=== PATIENT | female | born 1930 | race Caucasian/White ===

== ENCOUNTER 2017-05-16 10:48 | Inpatient (IN) | payer MEDICARE, OTHER ==
[2017-05-16] MEDS ORDERED: ACETAMINOPHEN TAB 500 MG TAB PO STA (10:59)
[2017-05-16] MEDS ORDERED: IPRATROPIUM-ALBUTEROL 3 ML NEB INHALATION STA (10:59)
--- NOTE | 2017-05-16 11:02 | ED ---
General Adult HPI - General Chief complaint: Shortness of Breath Stated complaint: SOB Time Seen by Provider: 05/16/17 10:50 Source: patient, EMS, RN notes reviewed Mode of arrival: EMS Limitations: no limitations - History of Present Illness Initial comments: This is an 87-year-old female presents emergency department with past medical history significant for COPD and a recent diagnosis of pneumonia. Patient stopped antibiotics couple days ago but she continues to cough and according to the staff the side. Patient has significant dementia so she is unable to give her further history. Patient denies any pain currently. Patient does not why she is in the emergency department. Patient doesn't complain of any shortness of breath currently. According to the teletypesetter the patient was satting in the high 80s when they saw her gave her one breathing treatment she was satting in the high 90s after that. Patient does have occasional coughing fits per the teletypesetter. No family member or caregiver came with the patient so no further history is available this time. - Related Data Home Medications Medication Instructions Recorded Confirmed Ascorbic Acid [Vitamin C] 500 mg PO DAILY@79901/02/15 05/16/17 Donepezil [Aricept] 10 mg PO HS@199901/02/15 05/16/17 Hydrochlorothiazide [Hydrodiuril] 12.5 mg PO DAILY@79901/02/15 05/16/17 Lisinopril 40 mg PO DAILY@79901/02/15 05/16/17 [place]-3 Fatty Acids/Fish Oil [Fish 1 cap PO DAILY@79901/02/15 05/16/17 Oil 1,000 mg Softgel] Zinc 50 mg PO DAILY@79901/02/15 05/16/17 Levothyroxine Sodium [Synthroid] 137 mcg PO DAILY@79901/13/15 05/16/17 Omeprazole [PriLOSEC] 20 mg PO DAILY@79901/13/15 05/16/17 Multivitamins, Thera [Multivitamin 1 tab PO DAILY@119912/13/15 05/16/17 (formulary)] Acetaminophen Tab [Tylenol] 500 mg PO HS@199905/29/16 05/16/17 Albuterol Nebulized [Ventolin 2.5 mg INHALATION RT-TID 05/29/16 05/16/17 Nebulized] Cholecalciferol [Vitamin D3] 2,000 unit PO DAILY@0800 05/29/16 05/16/17 Melatonin 3 mg PO HS@2000 05/29/16 05/16/17 ALPRAZolam [Xanax] 0.25 mg PO BID@0900,1700 05/16/17 05/16/17 Albuterol Nebulized [Ventolin 2.5 mg INHALATION RT-Q4H PRN 05/16/17 05/16/17 Nebulized] Cyanocobalamin (Vitamin B-12) 1,000 mcg PO DAILY@0800 05/16/17 05/16/17 [Vitamin B-12] Previous Rx's Medication Instructions Recorded Folic Acid 1 mg PO DAILY@1200 #30 tab 11/03/15 Budesonide [Pulmicort] 1 mg INHALATION RT-BID nebu 06/03/16 Allergies Allergy/AdvReac Type Severity Reaction Status Date / Time Beef Containing Products Allergy Nausea & Verified 05/16/17 11:57 [Beef] Vomiting & Diarrhea chocolate flavor Allergy Nausea & Verified 05/16/17 11:57 Vomiting & Diarrhea codeine Allergy Unknown Verified 05/16/17 11:57 isradipine [From [employer]] Allergy Unknown Verified 05/16/17 11:57 metoprolol tartrate Allergy Unknown Verified 05/16/17 11:57 [From Lopressor] tetracycline Allergy Unknown Verified 05/16/17 11:57 Review of Systems ROS Statement: Those systems with pertinent positive or pertinent negative responses have been documented in the HPI. ROS Other: All systems not noted in ROS Statement are negative. Past Medical History Past Medical History: Heart Failure, COPD, Hyperlipidemia, Hypertension, Osteoarthritis (OA), Thyroid Disorder Additional Past Medical History / Comment(s): COPD, hypertension, hyperlipidemia , osteoarthritis, shingles 4 or 5 years ago, scoliosis, hypothyroidism, generalized anxiety disorder, impaired hearing, dementia. History of Any Multi-Drug Resistant Organisms: None Reported Past Surgical History: Hysterectomy Additional Past Surgical History / Comment(s): cataracts Past Anesthesia/Blood Transfusion Reactions: No Reported Reaction Past Psychological History: No Psychological Hx Reported Smoking Status: Former smoker Past Alcohol Use History: Rare Past Drug Use History: None Reported - Past Family History Father Additional Family Medical History / Comment(s): was an alcoholic Mother Family Medical History: Unable to Obtain General Exam - General Exam Comments Initial Comments: GENERAL: Patient is well-developed and well-nourished. Patient is nontoxic and well- hydrated and is in mild distress. ENT: Neck is soft and supple. No significant lymphadenopathy is noted. Oropharynx is clear. Moist mucous membranes. Neck has full range of motion without eliciting any pain. EYES: The sclera were anicteric and conjunctiva were pink and moist. Extraocular movements were intact and pupils were equal round and reactive to light. Eyelids were unremarkable. PULMONARY: Patient has diffuse expiratory wheezing. CARDIOVASCULAR: There is a regular rate and rhythm without any murmurs gallops or rubs. ABDOMEN: Soft and nontender with normal bowel sounds. No palpable organomegaly was noted. There is no palpable pulsatile mass. SKIN: Skin is clear with no lesions or rashes and otherwise unremarkable. NEUROLOGIC: Patient is alert and oriented 2 which we are told is her baseline.. Cranial nerves II through XII are grossly intact. Motor and sensory are also intact. Normal speech, volume and content. Symmetrical smile. MUSCULOSKELETAL: Normal extremities with adequate strength and full range of motion. No lower extremity swelling or edema. No calf tenderness. LYMPHATICS: No significant lymphadenopathy is noted PSYCHIATRIC: Normal psychiatric evaluation. Limitations: no limitations Course Vital Signs 05/16/17 05/16/17 05/16/17 10:50 11:37 11:52 Temperature 99.8 F H Pulse Rate 96 92 90 Respiratory 26 H 26 H Rate Blood Pressure 124/72 O2 Sat by Pulse 91 L Oximetry 05/16/17 11:56 Temperature Pulse Rate 94 Respiratory 20 Rate Blood Pressure 122/56 O2 Sat by Pulse 93 L Oximetry Medical Decision Making - Medical Decision Making EKG shows normal sinus rhythm at 97 bpm OK interval is 154 QRS is 128 QT interval 386 QTC is 490. Patient's EKG shows no ST segment elevation. Patient is right bundle urbano block. Patient's lactic acid is elevated because of dehydration. Chest x-ray shows no acute abnormality. I spoke with Dr. Chris agreed to admit the patient. - Lab Data Result diagrams: 05/16/17 11:10 05/16/17 11:10 Lab Results 05/16/17 05/16/17 05/16/17 Range/Units 11:10 11:10 11:10 WBC 8.3 (3.8-10.6) k/uL RBC 3.49 L (3.80-5.40) m/uL Hgb 12.5 (11.4-16.0) gm/dL Hct 37.6 (34.0-46.0) % MCV 107.7 H (80.0-100.0) fL MCH 35.8 H (25.0-35.0) pg MCHC 33.2 (31.0-37.0) g/dL RDW 15.3 (11.5-15.5) % Plt Count 318 (150-450) k/uL Neutrophils % (Manual) 53.5 % Band Neutrophils % 4.5 % Lymphocytes % (Manual) 19.0 % Monocytes % (Manual) 15.5 % Eosinophils % (Manual) 7.0 % Metamyelocytes % 0.5 % Neutrophils # (Manual) 4.8 (1.3-7.7) k/uL Lymphocytes # (Manual) 1.6 (1.0-4.8) k/uL Monocytes # (Manual) 1.3 H (0-1.0) k/uL Eosinophils # (Manual) 0.6 (0-0.7) k/uL Nucleated RBCs 0 (0-0) /100 WBC Manual Slide Review Performed Macrocytosis Moderate PT (9.0-12.0) sec INR (<1.2) APTT (22.0-30.0) sec Sodium 142 (137-145) mmol/L Potassium 4.1 (3.5-5.1) mmol/L Chloride 104 (98-107) mmol/L Carbon Dioxide 25 (22-30) mmol/L Anion Gap 13 mmol/L BUN 27 H (7-17) mg/dL Creatinine 0.70 (0.52-1.04) mg/dL Est GFR (MDRD) Af Amer >60 (>60 ml/min/1.73 sqM) Est GFR (MDRD) Non-Af >60 (>60 ml/min/1.73 sqM) Glucose 125 H (74-99) mg/dL Plasma Lactic Acid Darnell (0.7-2.0) mmol/L Calcium 9.0 (8.4-10.2) mg/dL Total Bilirubin 0.5 (0.2-1.3) mg/dL AST 31 (14-36) U/L ALT 39 (9-52) U/L Alkaline Phosphatase 60 (38-126) U/L Total Creatine Kinase 44 (30-135) U/L CK-MB (CK-2) 1.7 (0.0-2.4) ng/mL CK-MB (CK-2) Rel Index 3.9 Troponin I <0.012 (0.000-0.034) ng/mL NT-Pro-B Natriuret Pep pg/mL Total Protein 6.5 (6.3-8.2) g/dL Albumin 4.0 (3.5-5.0) g/dL 05/16/17 05/16/17 05/16/17 Range/Units 11:10 11:10 11:10 WBC (3.8-10.6) k/uL RBC (3.80-5.40) m/uL Hgb (11.4-16.0) gm/dL Hct (34.0-46.0) % MCV (80.0-100.0) fL MCH (25.0-35.0) pg MCHC (31.0-37.0) g/dL RDW (11.5-15.5) % Plt Count (150-450) k/uL Neutrophils % (Manual) % Band Neutrophils % % Lymphocytes % (Manual) % Monocytes % (Manual) % Eosinophils % (Manual) % Metamyelocytes % % Neutrophils # (Manual) (1.3-7.7) k/uL Lymphocytes # (Manual) (1.0-4.8) k/uL Monocytes # (Manual) (0-1.0) k/uL Eosinophils # (Manual) (0-0.7) k/uL Nucleated RBCs (0-0) /100 WBC Manual Slide Review Macrocytosis PT 10.3 (9.0-12.0) sec INR 1.0 (<1.2) APTT 22.5 (22.0-30.0) sec Sodium (137-145) mmol/L Potassium (3.5-5.1) mmol/L Chloride (98-107) mmol/L Carbon Dioxide (22-30) mmol/L Anion Gap mmol/L BUN (7-17) mg/dL Creatinine (0.52-1.04) mg/dL Est GFR (MDRD) Af Amer (>60 ml/min/1.73 sqM) Est GFR (MDRD) Non-Af (>60 ml/min/1.73 sqM) Glucose (74-99) mg/dL Plasma Lactic Acid Darnell 2.1 H* (0.7-2.0) mmol/L Calcium (8.4-10.2) mg/dL Total Bilirubin (0.2-1.3) mg/dL AST (14-36) U/L ALT (9-52) U/L Alkaline Phosphatase (38-126) U/L Total Creatine Kinase (30-135) U/L CK-MB (CK-2) (0.0-2.4) ng/mL CK-MB (CK-2) Rel Index Troponin I (0.000-0.034) ng/mL NT-Pro-B Natriuret Pep 86 pg/mL Total Protein (6.3-8.2) g/dL Albumin (3.5-5.0) g/dL Disposition Clinical Impression: COPD with acute exacerbation Disposition: ADMITTED IP TO THIS HOSP Referrals: Vaughn Aanya MD [STAFF PHYSICIAN] - 1-2 days Time of Disposition: 13:10
[2017-05-16 11:26] LABS: Aty Lym Flag Slight; CH 35.1; CHCM 32.8; Immature Gran Flag Slight; Macrocytosis Moderate
[2017-05-16 11:31] LABS: Partial Thromboplastin Time 22.5 sec (22.0-30.0); Prothrombin Time 10.3 sec (9.0-12.0)
--- NOTE | 2017-05-16 11:31 | XR ---
EXAMINATION TYPE: XR chest 2V DATE OF EXAM: 05/16/2017 COMPARISON: Prior chest x-ray 05/30/2016, CT chest 05/29/2016 HISTORY: Fever and cough, COPD TECHNIQUE: Frontal and lateral views of the chest are obtained. FINDINGS: Retrocardiac density with air-fluid level compatible with hiatal hernia is noted. The hear t is enlarged. Patient is rotated and lung volumes are low. There are overlying cardiac leads. Inters titium and central vascularity are prominent. No pneumothorax or pleural effusion evident. IMPRESSION: Correlate for pulmonary venous hypertension and interstitial edema, follow-up suggested. Emphysema. Hiatal hernia.
[2017-05-16 11:36] LABS: ALT 39 U/L (9-52); AST 31 U/L (14-36); Alkaline Phosphatase 60 U/L (38-126); Anion Gap 13 mmol/L; Blood Urea Nitrogen 27 mg/dL (7-17); Carbon Dioxide 25 mmol/L (22-30); Chloride 104 mmol/L (98-107); Glucose 125 mg/dL (74-99); Non-African American GFR(MDRD) >60 (>60 ml/min/1.73 sqM); Potassium 4.1 mmol/L (3.5-5.1); Sodium 142 mmol/L (137-145); Total Bilirubin 0.5 mg/dL (0.2-1.3); Total Protein 6.5 g/dL (6.3-8.2)
[2017-05-16] MEDS ORDERED: SODIUM CHLORIDE 0.9% 500 ML IV STA (11:40)
[2017-05-16 11:43] LABS: HCT 37.6 % (34.0-46.0); HDW 2.69; HGB 12.5 gm/dL (11.4-16.0); MCH 35.8 pg (25.0-35.0); MCHC 33.2 g/dL (31.0-37.0); MCV 107.7 fL (80.0-100.0); Mean Platelet Volume 10.3; RBC 3.49 m/uL (3.80-5.40); RDW 15.3 % (11.5-15.5); WBC 8.3 k/uL (3.8-10.6); WBC (Perox) 8.29
[2017-05-16 11:44] LABS: Creatine Kinase 44 U/L (30-135)
[2017-05-16] MEDS ORDERED: FUROSEMIDE 10 MG/ML 4 ML VIAL IV STA (11:55)
[2017-05-16 11:57] LABS: Creatine Kinase MB 1.7 ng/mL (0.0-2.4); Troponin I <0.012 ng/mL (0.000-0.034)
[2017-05-16 12:17] LABS: Add Differential Manual Differential
[2017-05-16 12:22] LABS: Band Neutrophils % 4.5 %; Manual Review Performed; Metamyelocytes % 0.5 %; Nucleated Red Blood Cells 0 /100 WBC (0-0); Total Cells Counted 200
[2017-05-16 17:25] LABS: Glucose,Whole Blood 146 mg/dL (75-99)
[2017-05-16] MEDS: SODIUM CHLORIDE 0.9% 1,000 ML IV SCH (17:34)
[2017-05-16] MEDS: ALPRAZolam 0.25 MG TAB PO SCH (17:34)
[2017-05-16] MEDS ORDERED: methylPREDNISolone SOD SUCCI 125 MG/2 ML VIAL IV SCH (18:00)
[2017-05-16] MEDS: INSULIN LISPRO (humaLOG) 300 UNIT/3 ML VIAL SQ SCH ×2 (18:38→21:41)
[2017-05-16] MEDS: BUDESONIDE 1 MG/2 ML NEBU INHALATION SCH (19:51)
[2017-05-16 21:23] LABS: Glucose,Whole Blood 156 mg/dL (75-99)
[2017-05-16] MEDS: DONEPEZIL 10 MG TAB PO SCH (21:37)
[2017-05-16] MEDS: MELATONIN 3 MG TABLET PO SCH (21:37)
[2017-05-16] MEDS ORDERED: LORazepam 2 MG/ML SYRINGE IV PRN (22:30)
--- NOTE | 2017-05-16 22:34 | P.HPIM ---
History of Present Illness H&P Date: 05/16/17 Chief Complaint: Short of breath His is a 87-year-old patient followed by visiting physicians. Resident of [facility]. Chronic stable conditions include CHF, hypertension, hyperlipidemia, osteoarthritis, hypothyroid dementia. Does use a walker at her baseline. Patient just completed a course of antibiotic. Patient is a poor historian because of dementia. Brought in because of bouts of coughing short of breath. No sputum production. Patient is started tolerating her meals. Denies any fever. But difficult to get a detailed history. According to the nurse patient gets easily short winded when tries to walk. Patient notably neck smoker Significant past history: CHF, COPD, hypertension, hyperlipidemia, Daphne arthritis, scoliosis, hypothyroid , anxiety, dementia, did dysfunction uses a walker. Review of Systems GEN.: Tired EYES: None HEENT: Decreased hearing NECK: None RESPIRATORY: As above] CARDIOVASCULAR: None GASTROINTESTINAL: None GENITOURINARY: Urinary incontinence MUSCULOSKELETAL: In the joints LYMPHATICS: None HEMATOLOGICAL: None PSYCHIATRY: Forgetful NEUROLOGICAL: Uses a walker Past Medical History Past Medical History: Heart Failure, COPD, Hyperlipidemia, Hypertension, Osteoarthritis (OA), Thyroid Disorder Additional Past Medical History / Comment(s): COPD, hypertension, hyperlipidemia , osteoarthritis, shingles 4 or 5 years ago, scoliosis, hypothyroidism, generalized anxiety disorder, impaired hearing, dementia. History of Any Multi-Drug Resistant Organisms: None Reported Past Surgical History: Hysterectomy Additional Past Surgical History / Comment(s): bilateral cataracts Past Anesthesia/Blood Transfusion Reactions: No Reported Reaction Past Psychological History: No Psychological Hx Reported Additional Psychological History / Comment(s): PT LIVES AT [facility]. USES A WALKER. Smoking Status: Unknown if ever smoked Past Alcohol Use History: Rare Additional Past Alcohol Use History / Comment(s): quit smoking 35 years smoked 1 ppd and she has more than [id number] smoking history. Past Drug Use History: None Reported Additional History: Resident of [facility]. Ex-smoker. 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 Has a daughter. Uses a walker. - Past Family History Father Additional Family Medical History / Comment(s): was an alcoholic Mother Family Medical History: Unable to Obtain Medications and Allergies Home Medications Medication Instructions Recorded Confirmed Type Ascorbic Acid [Vitamin C] 500 mg PO DAILY@0800 01/02/15 05/16/17 History Donepezil [Aricept] 10 mg PO HS@199901/02/15 05/16/17 History Hydrochlorothiazide [Hydrodiuril] 12.5 mg PO DAILY@79901/02/15 05/16/17 History Lisinopril 40 mg PO DAILY@79901/02/15 05/16/17 History [place]-3 Fatty Acids/Fish Oil [Fish 1 cap PO DAILY@79901/02/15 05/16/17 History Oil 1,000 mg Softgel] Zinc 50 mg PO DAILY@79901/02/15 05/16/17 History Levothyroxine Sodium [Synthroid] 137 mcg PO DAILY@79901/13/15 05/16/17 History Omeprazole [PriLOSEC] 20 mg PO DAILY@79901/13/15 05/16/17 History Multivitamins, Thera [Multivitamin 1 tab PO DAILY@1200 12/13/15 05/16/17 History (formulary)] Acetaminophen Tab [Tylenol] 500 mg PO HS@199905/29/16 05/16/17 History Albuterol Nebulized [Ventolin 2.5 mg INHALATION RT-TID 05/29/16 05/16/17 History Nebulized] Cholecalciferol [Vitamin D3] 2,000 unit PO DAILY@79905/29/16 05/16/17 History Melatonin 3 mg PO HS@199905/29/16 05/16/17 History ALPRAZolam [Xanax] 0.25 mg PO BID@0900,1700 05/16/17 05/16/17 History Albuterol Nebulized [Ventolin 2.5 mg INHALATION RT-Q4H PRN 05/16/17 05/16/17 History Nebulized] Cyanocobalamin (Vitamin B-12) 1,000 mcg PO DAILY@79905/16/17 05/16/17 History [Vitamin B-12] Allergies Allergy/AdvReac Type Severity Reaction Status Date / Time Beef Containing Products Allergy Nausea & Verified 05/16/17 11:57 [Beef] Vomiting & Diarrhea chocolate flavor Allergy Nausea & Verified 05/16/17 11:57 Vomiting & Diarrhea codeine Allergy Unknown Verified 05/16/17 11:57 isradipine [From [facility]] Allergy Unknown Verified 05/16/17 11:57 metoprolol tartrate Allergy Unknown Verified 05/16/17 11:57 [From Lopressor] tetracycline Allergy Unknown Verified 05/16/17 11:57 Physical Exam Vitals: Vital Signs Temp Pulse Pulse Resp BP BP Pulse Ox 05/16/17 16:14 98.0 F 70 16 106/64 96 05/16/17 14:51 97.9 F 79 18 134/74 97 05/16/17 11:56 94 20 122/56 93 L 05/16/17 11:52 90 05/16/17 11:37 92 26 H 05/16/17 10:50 99.8 F H 96 26 H 124/72 91 L Intake and Output Patient Weight 05/17/17 06:59 Weight 56.699 kg VITAL SIGNS: That 99.8, 96, 26, 124/72, 91% 2 L upon presentation GENERAL: Average built, laying in bed comfortable anxious appearing. EYES: Pupils equal. Conjunctiva normal. HEENT: External appearance of nose and ears normal, oral cavity grossly normal, decreased hearing. NECK: JVD not raised; masses not palpable. HEART: First and second heart sounds are normal; no edema. LUNGS: Respiratory rate increased, decreased but some mild wheezing. ABDOMEN: Soft, nontender, liver spleen not palpable, no masses palpable. LYMPHATICS: No lymph nodes palpable in the axilla and neck. PSYCH: Patient is awake answering questions with limited in her history giving she is not sure why she is here but she can touch his the hospitall. NEUROLOGICAL: Cranial nerves grossly intact; no facial asymmetry, power and sensation grossly intact MUSCULAR skeletal: Evidence of osteoarthritis multiple joints. Results CBC & Chem 7: 05/16/17 11:10 05/16/17 11:10 Labs: White count 8.3, hemoglobin 12.5, platelets normal, potassium 4.1, (27, creatinine 0.7, EKG right bundle branch block Chest x-ray reviewed-scattered infiltrates Pro-BNP 86 troponin less than 0.012 Assessment and Plan Plan: Assessment: Acute COPD exacerbation in an ex-smoker was just finished a course of antibiotics Possible acute pneumonitis given the chest x-ray findings though patient is afebrile, normal white count as good bouts of coughing -Chronic congestive heart failure EF not known Essential hypertension Hyperlipidemia Primary osteoarthritis in multiple joints Chronic scoliosis Chronic hypothyroidism chronic anxiety not otherwise specified Alzheimer's dementia late onset type Gait dysfunction uses a walker Plan: Patient to be started on bronchodilators. IV steroids. Ambulate as tolerated.. Home medications will be resumed. Given her age, prognosis guarded.
[2017-05-16] MEDS: IPRATROPIUM-ALBUTEROL 3 ML NEB INHALATION PRN (23:25)
[2017-05-17] MEDS ORDERED: HALOPERIDOL LACTATE 5 MG/ML 1 ML VIAL IVP PRN (00:44)
[2017-05-17] MEDS: HALOPERIDOL LACTATE 5 MG/ML 1 ML VIAL IM PRN (01:32)
[2017-05-17] MEDS: methylPREDNISolone SOD SUCCI 40 MG/ML 1 ML VIAL IV SCH ×4 (05:48→23:46)
[2017-05-17 07:37] LABS: Hemoglobin A1C 6.6 % (4.2-6.1)
[2017-05-17 08:03] LABS: Glucose,Whole Blood 126 mg/dL (75-99)
[2017-05-17] MEDS: INSULIN LISPRO (humaLOG) 300 UNIT/3 ML VIAL SQ SCH ×4 (09:32→22:19)
[2017-05-17] MEDS: BUDESONIDE 1 MG/2 ML NEBU INHALATION SCH ×2 (09:41→20:05)
[2017-05-17] MEDS: IPRATROPIUM-ALBUTEROL 3 ML NEB INHALATION SCH ×4 (09:41→20:05)
[2017-05-17] MEDS: LISINOPRIL 20 MG TAB PO SCH (09:58)
[2017-05-17] MEDS: CYANOCOBALAMIN 500 MCG TAB PO SCH (09:58)
[2017-05-17] MEDS: CHOLECALCIFEROL 1,000 UNIT TAB PO SCH (09:58)
[2017-05-17] MEDS: LEVOTHYROXINE 137 MCG TAB PO SCH (09:59)
[2017-05-17] MEDS: HYDROCHLOROTHIAZIDE 12.5 MG CAP PO SCH (10:00)
[2017-05-17] MEDS: PANTOPRAZOLE 40 MG TABLET PO SCH (10:06)
[2017-05-17 12:10] LABS: Glucose,Whole Blood 163 mg/dL (75-99)
[2017-05-17] MEDS: ENOXAPARIN 40 MG/0.4 ML SYRINGE SQ SCH (13:15)
[2017-05-17] MEDS: FOLIC ACID 1 MG TAB PO SCH (13:17)
[2017-05-17] MEDS: MULTIVITAMINS, THERA 1 EACH TAB PO SCH (13:17)
[2017-05-17] MEDS: SODIUM CHLORIDE 0.9% 1,000 ML IV SCH (13:23)
[2017-05-17] MEDS: ALPRAZolam 0.25 MG TAB PO SCH ×2 (15:53→17:13)
[2017-05-17 17:41] LABS: Glucose,Whole Blood 108 mg/dL (75-99)
[2017-05-17] MEDS: guaiFENesin SYRUP 100MG/5ML 200 MG/10 ML CUP PO PRN (19:02)
--- NOTE | 2017-05-17 19:37 | P.PN ---
<Eva Mclaughlin - Last Filed: 05/17/17 19:27> Progress Note - Text DATE OF SERVICE: 05/17/2017 PRESENTING COMPLAINT: Shortness of breath INTERVAL HISTORY: 87-year-old patient followed by visiting physicians, resident of [facility]. Recently completed a course of antibiotics for pneumonia brought in because of bouts of coughing and shortness of breath. Difficult to obtain history information as patient is has dementia 05/17/2017: Patient just walking back from the bathroom very short of breath, is difficult to direct her times. She admits she gets tired easily. REVIEW OF SYSTEMS: Difficult to perform due to patient's dementia CURRENT MEDICATIONS DuoNeb's, Pulmicort, Xanax, Aricept, Lovenox, Synthroid, Ativan, melatonin. PHYSICAL EXAM VITAL SIGNS: 97.8, pulse 91, respiratory rate 22, blood pressure 118/53, oxygen saturation 98 % on 2 L. GENERAL APPEARANCE: Sitting up at the bedside, in mild distress. EYES: Pupils equal. Conjunctiva normal. NECK: JVD not raised. Mass not palpable. RESPIRATORY: Respiratory effort labored with exertion, conversational dyspnea noted. Decreased breath sounds bilaterally, positive cough no sputum. CARDIOVASCULAR: First and second sounds normal. No edema. ABDOMEN: Soft. Liver and spleen not palpable. No tenderness. No mass palpable. PSYCHIATRY: Alert and oriented x3. Mood and affect normal. INVESTIGATIONS: Accu-Cheks noted ASSESSMENT: -Acute COPD exacerbation and an ex-smoker who just finished a course of antibiotics. -Possible acute pneumonitis given the chest x-ray although patient is afebrile, normal white count, positive cough -Chronic congestive heart failure EF not known. -Essential hypertension. -Hyperlipidemia -Primary osteoarthritis of multiple joints. -Chronic scoliosis. -Chronic hypothyroidism. -Chronic anxiety not otherwise specified. -Alzheimer's dementia late onset type. -Gait dysfunction uses a walker PLAN: Continue bronchodilators, IV steroids, ambulate as tolerated. FRUIT TRIMMER statement: Patient was seen and examined by nurse practitioner Eva Mclaughlin and all elements of the case discussed with attending Dr. Urrutia <Amadou Urrutia - Last Filed: 05/17/17 23:25> Progress Note - Text Attending note. Date of service-05/17/2017 This patient was seen and examined by me . I reviewed the note of my nurse practitioner, Ms. Mclaughlin. Discussed with her, additional findings as below. Admitted with COPD exacerbation and probably pneumonitis. Feels a bit better. Has bouts of wheezing cough present. Eating her breakfast. On examination: Decreased breath sounds, and expiratory wheezing. I'll see questions Investigations: Accu-Cheks noted Assessment and plan: Acute COPD exacerbation ex-smoker, slow to respond Acute pneumonitis likely viral Care was discussed with the patient continue current medication treatment plan. Pulmonary was consulted
[2017-05-17 21:41] LABS: Glucose,Whole Blood 130 mg/dL (75-99)
[2017-05-17] MEDS: DONEPEZIL 10 MG TAB PO SCH (22:19)
[2017-05-17] MEDS: MELATONIN 3 MG TABLET PO SCH (22:19)
[2017-05-18 06:54] LABS: Glucose,Whole Blood 126 mg/dL (75-99)
[2017-05-18] MEDS: BUDESONIDE 1 MG/2 ML NEBU INHALATION SCH ×2 (07:39→20:13)
[2017-05-18] MEDS: IPRATROPIUM-ALBUTEROL 3 ML NEB INHALATION SCH ×4 (07:39→20:13)
[2017-05-18] MEDS: INSULIN LISPRO (humaLOG) 300 UNIT/3 ML VIAL SQ SCH ×3 (08:26→18:21)
[2017-05-18] MEDS: HYDROCHLOROTHIAZIDE 12.5 MG CAP PO SCH (08:31)
[2017-05-18] MEDS: ALPRAZolam 0.25 MG TAB PO SCH ×2 (08:31→18:21)
[2017-05-18] MEDS: CHOLECALCIFEROL 1,000 UNIT TAB PO SCH (08:32)
[2017-05-18] MEDS: LEVOTHYROXINE 137 MCG TAB PO SCH (08:32)
[2017-05-18] MEDS: LISINOPRIL 20 MG TAB PO SCH (08:32)
[2017-05-18] MEDS: methylPREDNISolone SOD SUCCI 40 MG/ML 1 ML VIAL IV SCH (08:33)
[2017-05-18] MEDS: ENOXAPARIN 40 MG/0.4 ML SYRINGE SQ SCH (08:33)
[2017-05-18] MEDS: CYANOCOBALAMIN 500 MCG TAB PO SCH (08:33)
[2017-05-18] MEDS: PANTOPRAZOLE 40 MG TABLET PO SCH (08:33)
[2017-05-18] MEDS: SODIUM CHLORIDE 0.9% 1,000 ML IV SCH (08:34)
[2017-05-18 08:52] LABS: Basophils # (A) 0.1 k/uL (0-0.2); Basophils % (A) 1 %; CH 34.6; CHCM 31.9; Eosinophils % (A) 0 %; HCT 37.3 % (34.0-46.0); HDW 2.57; Hypochromasia Slight; Luc # (Auto) 0.15; Luc % (Auto) 2; Lymphocytes # (A) 1.1 k/uL (1.0-4.8); Lymphocytes % (A) 15 %; MCH 35.1 pg (25.0-35.0); MCHC 32.2 g/dL (31.0-37.0); Macrocytosis Marked; Mean Platelet Volume 9.3; Monocytes # (A) 0.3 k/uL (0-1.0); Monocytes % (A) 4 %; Neutrophils # (A) 5.7 k/uL (1.3-7.7); Neutrophils % (A) 78 %; RBC 3.42 m/uL (3.80-5.40); RDW 14.9 % (11.5-15.5); WBC 7.3 k/uL (3.8-10.6); WBC (Perox) 7.69
[2017-05-18 08:53] LABS: Anion Gap 9 mmol/L; Blood Urea Nitrogen 32 mg/dL (7-17); Calcium 9.2 mg/dL (8.4-10.2); Carbon Dioxide 31 mmol/L (22-30); Chloride 102 mmol/L (98-107); Glucose 112 mg/dL (74-99); Non-African American GFR(MDRD) >60 (>60 ml/min/1.73 sqM); Potassium 5.1 mmol/L (3.5-5.1); Sodium 142 mmol/L (137-145)
[2017-05-18 11:03] LABS: Manual Review Performed
[2017-05-18 11:50] LABS: Glucose,Whole Blood 110 mg/dL (75-99)
[2017-05-18] MEDS: methylPREDNISolone SOD SUCCI 125 MG/2 ML VIAL IV SCH ×2 (12:03→18:22)
[2017-05-18] MEDS: MULTIVITAMINS, THERA 1 EACH TAB PO SCH (13:03)
[2017-05-18] MEDS: FOLIC ACID 1 MG TAB PO SCH (13:04)
--- NOTE | 2017-05-18 13:47 | CONS ---
The patient is an 87-year-old female presents with diagnosis of COPD exacerbation. The patient is very confused and disoriented. Lots of audible wheezing and cough. The patient was seen in the emergency room. The patient was apparently brought in by EMS. Came in with complaints of cough, shortness of breath and wheezing. The patient initially was seen by EMS, paramedics and the patient saturations were quite low. Subsequent to a breathing treatment, ( ) saturations improved. She has audible wheezing currently. Very confused. Very hard of hearing. Her medications include: 1. Ascorbic acid. 2. Aricept. 3. Hydrochlorothiazide. 4. Lisinopril. 5. [place]-3. 6. Fish oils. 7. Zinc. 8. Levothyroxine. 9. Omeprazole. 10. Multivitamins. 11. Tylenol. 12. Albuterol updrafts. 13. Vitamin D3. 14. Melatonin. 15. Xanax. 16. Ventolin inhaler. 17. Vitamin B12. 18. Also at one point was on Folic acid and Pulmicort updrafts. ALLERGIES INCLUDE BEEF CONTAINING PRODUCTS, CHOCOLATE, ( ) CODEINE, DYNACIRC, METOPROLOL, TETRACYCLINE. Past medical history includes CHF, COPD, Hyperlipidemia, hypertension, DJD, hypothyroidism, osteoarthritis, shingles, scoliosis, generalized anxiety and impaired hearing and dementia. Surgical history includes among other things, hysterectomy and cataract surgery. FAMILY HISTORY: Significant for father who is an alcoholic. SOCIAL HISTORY: Positive for previous tobacco use. The patient does not smoke currently. Rare alcohol use. No illicit drug use. Review of systems is unreliable. Currently temperature 98.8, Heart rate is 72. Respiratory rate is 14. Blood pressure 111/74. Mean 86. 2 L saturation 99%. Appears in no acute distress. HEENT: Examination is grossly unremarkable. Mucous membranes are moist. No oral lesions. Neck supple. Full range of motion. No adenopathy. No thyromegaly. Neck veins are flat. Cardiovascular: Examination revealed regular rate and rhythm. S1, S2 normal. Lungs reveal some inspiratory and expiratory wheezes and rhonchi. Breath sounds are diminished. There is prolongation. Abdomen soft. Bowel sounds are heard. Extremities are intact. No cyanosis, clubbing or edema. Skin without rash. Neurological examination could not be adequately performed. Labs are reviewed. White count 7.3, hemoglobin and hematocrit 12 and 37.3. Platelet count 374,000. Sodium and potassium 142 and 5.1. Chloride 102. CO2 31. BUN and creatinine 32 and 0.74. Blood cultures all negative. Lactic acid was initially 2.3. Calcium normal. Troponins negative. BNP was negative. The patient had a chest x-ray done on 05/16 which showed some mild interstitial edema, mild congestive heart failure. There is some emphysematous changes as well. ASSESSMENT: 1. Shortness of breath, likely multifactorial in part related to underlying chronic obstructive pulmonary disease exacerbation but also some mild fluid overload. 2. History of congestive heart failure. 3. History of chronic obstructive pulmonary disease. 4. History of hyperlipidemia. 5. Hypertension. 6. Degenerative joint disease. 7. Hypothyroidism. 8. History of cataracts. 9. History of generalized anxiety. 10. Dementia by history. 11. Hard of hearing. The patients medications are reviewed. Please see my orders. We will make sure he is on appropriate medications including DuoNeb, Pulmicort, Formoterol and systemic cortical steroids as well as oral antibiotic. Additional recommendations and suggestions forthcoming. Prognosis guarded. MTDD
[2017-05-18 17:16] LABS: Glucose,Whole Blood 135 mg/dL (75-99)
--- NOTE | 2017-05-18 19:23 | P.PN ---
Progress Note - Text DATE OF SERVICE: 05/18/2017 PRESENTING COMPLAINT: Shortness of breath INTERVAL HISTORY: 87-year-old patient followed by visiting physicians, resident of [facility]. Recently completed a course of antibiotics for pneumonia brought in because of bouts of coughing and shortness of breath. Difficult to obtain history information as patient has dementia 05/17/2017: Patient just walking back from the bathroom very short of breath, is difficult to direct her times. She admits she gets tired easily. 05/18/2017: Patient lying in the bed, sleeping quietly vital signs stable, audible wheezing heard, coarse cough, no sputum production, eating about 50% of her meals, overnight patient becomes fairly agitated and needs a sitter at the bedside, as she is a fall risk and has a tendency to be impulsive. Oral antibiotics and corticosteroids added to patient's medication regimen REVIEW OF SYSTEMS: Difficult to perform due to patient's dementia CURRENT MEDICATIONS DuoNeb's, Pulmicort, Xanax, Aricept, Lovenox, Synthroid, Ativan, melatonin. Solu-Medrol 60 mg IV every 6 hours, trimethoprim/sulfamethizole IV piggyback twice a day PHYSICAL EXAM VITAL SIGNS: 97.8, pulse 91, respiratory rate 22, blood pressure 118/53, oxygen saturation 98 % on 2 L. GENERAL APPEARANCE: Sitting up at the bedside, in mild distress. EYES: Pupils equal. Conjunctiva normal. NECK: JVD not raised. Mass not palpable. RESPIRATORY: Respiratory effort labored with exertion, conversational dyspnea noted. Decreased breath sounds bilaterally, positive cough no sputum. CARDIOVASCULAR: First and second sounds normal. No edema. ABDOMEN: Soft. Liver and spleen not palpable. No tenderness. No mass palpable. PSYCHIATRY: Alert and oriented x1-2. Mood and affect normal. INVESTIGATIONS: White blood cell count 7.3, hemoglobin 12.0, sodium 142, potassium 5.1, BUN 32, creatinine 0.74. Accu-Cheks noted ASSESSMENT: -Acute COPD exacerbation in an ex-smoker who just finished a course of antibiotics, slow to respond - acute pneumonitis likely viral slow to respond -Chronic congestive heart failure EF not known. -Essential hypertension. -Hyperlipidemia -Primary osteoarthritis of multiple joints. -Chronic scoliosis. -Chronic hypothyroidism. -Chronic anxiety not otherwise specified. -Alzheimer's dementia late onset type. -Gait dysfunction uses a walker PLAN: Continue bronchodilators, IV steroids and antibiotics breathing treatments. Defer discussion of plan of care with patient until family is present at the bedside. We will continue to follow closely. . CAR SEAT UPHOLSTERER statement: Patient was seen and examined by nurse practitioner Eva Mclaughlin and all elements of the case discussed with attending Dr. Urrutia
[2017-05-18] MEDS: FORMOTEROL FUMARATE 20 MCG/2 ML NEBU INHALATION SCH (20:13)
[2017-05-18 21:00] LABS: Glucose,Whole Blood 156 mg/dL (75-99)
[2017-05-18] MEDS ORDERED: SULFAMETHOX-TMP 800-160MG 1 EACH TAB PO SCH (21:00)
[2017-05-18] MEDS: HALOPERIDOL LACTATE 5 MG/ML 1 ML VIAL IM PRN (21:04)
[2017-05-18] MEDS: DONEPEZIL 10 MG TAB PO SCH (22:54)
[2017-05-18] MEDS: MELATONIN 3 MG TABLET PO SCH (22:54)
[2017-05-18] MEDS ORDERED: HALOPERIDOL LACTATE 5 MG/ML 1 ML VIAL IM PRN (23:47)
[2017-05-19] MEDS: INSULIN LISPRO (humaLOG) 300 UNIT/3 ML VIAL SQ SCH ×5 (02:15→22:07)
[2017-05-19] MEDS: methylPREDNISolone SOD SUCCI 125 MG/2 ML VIAL IV SCH ×3 (02:16→12:29)
[2017-05-19] MEDS: SODIUM CHLORIDE 0.9% 1,000 ML IV SCH (05:24)
[2017-05-19 06:56] LABS: Glucose,Whole Blood 95 mg/dL (75-99)
[2017-05-19] MEDS: IPRATROPIUM-ALBUTEROL 3 ML NEB INHALATION SCH ×4 (07:44→20:39)
[2017-05-19] MEDS: BUDESONIDE 1 MG/2 ML NEBU INHALATION SCH ×2 (07:44→20:39)
[2017-05-19] MEDS: FORMOTEROL FUMARATE 20 MCG/2 ML NEBU INHALATION SCH ×2 (07:44→20:38)
[2017-05-19] MEDS: LISINOPRIL 20 MG TAB PO SCH (08:12)
[2017-05-19] MEDS: CYANOCOBALAMIN 500 MCG TAB PO SCH (08:12)
[2017-05-19] MEDS: LEVOTHYROXINE 137 MCG TAB PO SCH (08:12)
[2017-05-19] MEDS: PANTOPRAZOLE 40 MG TABLET PO SCH (08:12)
[2017-05-19] MEDS: HYDROCHLOROTHIAZIDE 12.5 MG CAP PO SCH (08:13)
[2017-05-19] MEDS: CHOLECALCIFEROL 1,000 UNIT TAB PO SCH (08:13)
[2017-05-19] MEDS: ENOXAPARIN 40 MG/0.4 ML SYRINGE SQ SCH (08:14)
[2017-05-19] MEDS: ALPRAZolam 0.25 MG TAB PO SCH ×2 (08:16→17:52)
[2017-05-19] MEDS ORDERED: SULFAMETHOX-TMP 800-160MG 1 EACH TAB PO SCH (09:00)
[2017-05-19 10:18] LABS: Anion Gap 12 mmol/L; Blood Urea Nitrogen 37 mg/dL (7-17); Carbon Dioxide 27 mmol/L (22-30); Chloride 102 mmol/L (98-107); Glucose 102 mg/dL (74-99); Non-African American GFR(MDRD) >60 (>60 ml/min/1.73 sqM); Potassium 4.3 mmol/L (3.5-5.1); Sodium 141 mmol/L (137-145)
[2017-05-19 10:22] LABS: CH 35.2; CHCM 32.5; HCT 41.9 % (34.0-46.0); HDW 2.57; HGB 13.4 gm/dL (11.4-16.0); MCH 34.9 pg (25.0-35.0); Macrocytosis Marked; Mean Platelet Volume 10.3; RBC 3.84 m/uL (3.80-5.40); RDW 15.5 % (11.5-15.5)
--- NOTE | 2017-05-19 10:23 | XR ---
EXAMINATION TYPE: XR chest 2V DATE OF EXAM: 05/19/2017 COMPARISON: 05/16/2017 HISTORY: Cough and pneumonia TECHNIQUE: Frontal and lateral views of the chest are obtained. FINDINGS: Diffuse interstitial prominence and peribronchial cuffing are appreciated, similar in degr ee to the prior exam with no focal consolidation. Low lung volumes accentuate the pulmonary vasculatu re. The cardiac silhouette size is within normal limits given the degree of inspiration. The osseo us structures are intact. The known hiatal hernia is better appreciated on the prior examination. IMPRESSION: Prominence of the interstitium and peribronchial cuffing. Primary consideration is for a typical pneumonia, bronchitis, or inflammatory etiology. Pulmonary vascularity is accentuated by low lung volumes.
[2017-05-19 10:51] LABS: Add Differential Manual Differential
[2017-05-19 10:52] LABS: Nucleated Red Blood Cells 0 /100 WBC (0-0); Total Cells Counted 100
[2017-05-19 10:54] LABS: Large Platelets Present; Polychromasia Present
--- NOTE | 2017-05-19 11:44 | CONS ---
DATE OF SERVICE: 05/18/2017 Reason for consultation is a positive blood culture. HISTORY OF PRESENT ILLNESS: The patient is an 87-year-old female who has been brought into the ER at [facility] on 05/16/2017 with the chief complaints of increasing cough and shortness of breath. Apparently the patient does have a history of underlying COPD and recently completed a course of pneumonia. Antibiotics were stopped a few days ago; however, the patient continues to cough per the [facility] where the patient resides. On arrival by the EMS, the patient also noticed to have the oxygen in high 80s. The patient did receive one breathing treatment and oxygen to the 90s. The patient was noticed to have occasional coughing fits per the plywood scarfer tender. Subsequently brought into the ER at [facility]. Patient was evaluated by the ER physician. X-ray did not show an acute pneumonia. She has a normal white count. Fever was 99.8. Patient did have blood culture drawn. One of them is showing a gram-positive bacilli. A repeat was obtained which is also showing gram positive bacilli, hence I will give her consideration for further recommendation regarding antibiotic therapy. All of this information has been obtained from review of the chart and talking with the staff as the patient is not a very good historian and unable to provide a reliable history. REVIEW OF SYSTEMS: Could not be reliably obtained with the positive points have been shown in the HPI. PAST MEDICAL HISTORY: Significant for CHF, COPD, hypertensin, hyperlipidemia, osteoarthritis, scoliosis, hypothyroidism, anxiety, dementia. PAST SURGICAL HISTORY: Hysterectomy, bilateral cataract surgery. SOCIAL HISTORY: The patient is at the [facility]. Did quit smoking about 4 or 5 years ago with about 50-pack year smoking. No drinking or drug use. FAMILY HISTORY: Father was alcoholic. Allergies to BEEF CONTAINING PRODUCTS, METOPROLOL, TETRACYCLINE and CODEINE. On examination, here blood pressure is 141/74 with a pulse of 84, temperature of 98.1. She is 98% on 2 L nasal cannula. General description is an elderly female lying in bed in no distress. No tachypnea or accessory muscle for respiration use. HEENT exam shows no pallor or scleral icterus. Oral mucosal membrane dry. NECK: Trachea central, no thyromegaly. LUNGS: Unlabored breathing with decreased breath sounds at the base, no wheeze. HEART: S1, S2, regular rate and rhythm. ABDOMEN: Soft, no tenderness. EXTREMITIES: No edema of the feet. SKIN EXAMINATION: No rash or mass palpable. NEUROLOGICAL: The patient is awake, alert, orientation ( ). No agitation was noticed though. LABS: Hemoglobin is 12, the white count is 7.3, BUN of 32, creatinine 0.74. Blood cultures 05/16 positive for a gram-positive bacilli. Blood cultures 05/17 is positive for gram-positive bacilli. Chest x-ray report with no acute pneumonia. DIAGNOSTIC IMPRESSION AND PLAN: Patient with a positive blood culture with gram -positive bacilli, more likely a skin contamination as patient has no clinical disease to go along with it, admitted to the hospital with increased shortness of breath and a cough and low O2 sensor; however, the x-ray was negative for any acute pneumonia. PLAN: 1. Blood culture will be repeated in the morning again. 2. Will also obtain a chest x-ray in PA and lateral. 3. No need for any vancomycin therapy at this point. 4. Will follow up on the clinical condition and culture to further adjust medication if needed. Thank you for this consultation, will follow this patient along with you. REBECCA
[2017-05-19 12:03] LABS: Glucose,Whole Blood 80 mg/dL (75-99)
[2017-05-19] MEDS: MULTIVITAMINS, THERA 1 EACH TAB PO SCH (12:27)
[2017-05-19] MEDS: FOLIC ACID 1 MG TAB PO SCH (12:28)
--- NOTE | 2017-05-19 14:28 | PN ---
This is an 87-year-old patient seen in consultation for COPD exacerbation. The patient is very confused, disoriented, refusing some of her medications. Ripping her IV out. We will switch her to oral Prednisone and cut back on her breathing treatments which she is refusing. It is really hard getting any history from her at all. Her medical history is apparently positive for CHF, COPD, hyperlipidemia, hypertension, DJD, hypothyroidism, shingles, scoliosis, generalized anxiety and impaired hearing with dementia. Current vital signs are reviewed. Temperature is 97.1. Heart rate 80. Respiratory rate 16. Blood pressure 122/67. Mean 85. Room air saturation 92 %, 2 L saturation 96%. Appears in no acute distress. HEENT examination is grossly unremarkable. Mucous membranes are moist. Neck is supple. Full range of motion. No adenopathy, thyromegaly. No neck vein distention. Cardiovascular examination reveals a regular rhythm and rate. S1, S2 normal. Lungs reveal bibasilar rhonchi. Breath sounds are diminished. Slight wheezing. Abdomen soft, bowel sounds are heard. Extremities are intact. No cyanosis, clubbing or edema. Skin without rash. Labs are reviewed. White count 12, hemoglobin 13.4, hematocrit 41.9, platelet count 360,000. Sodium, potassium, chloride and CO2 all normal. BUN and creatinine 37 and 0.66. Microbiology is showing blood culture positive for ( ) may be a contaminant. Chest x-ray consistent for COPD and possible acute bronchitis. Medications are reviewed. ASSESSMENT: 1. Chronic obstructive pulmonary disease exacerbation complicated by purulent tracheobronchitis. 2. Mild fluid overload. 3. Congestive heart failure. 4. History of chronic obstructive pulmonary disease. 5. Hypoxemic respiratory failure. 6. History of hyperlipidemia. 7. Hypertension. 8. Degenerative joint disease. 9. Hypothyroidism. 10. History of cataracts. 11. History of generalized anxiety. 12. History of dementia. 13. History of being hard of hearing. PLAN: Medications are reviewed. I will make sure we consolidate her medications. She can refuse the medications if she wants. She apparently is refusing some. Sometimes she pulls off her oxygen. Saturations sometimes go about 90% may be a bit lower. No additional recommendations are made. Prognosis guarded. MTDD
[2017-05-19 17:25] LABS: Glucose,Whole Blood 87 mg/dL (75-99)
[2017-05-19] MEDS ORDERED: FUROSEMIDE 10 MG/ML 2 ML VIAL IV ONE (20:50)
--- NOTE | 2017-05-19 21:13 | PN ---
DATE OF SERVICE: 05/19/17 REASON FOR FOLLOW UP: 1. Positive blood culture. 2. Possible bronchitis/pneumonia. INTERVAL HISTORY: The patient is afebrile. She is more awake and alert today. Breathing comfortably. She did have some cough, not bringing up any sputum. No chest pain. No abdominal pain and no diarrhea has been noticed. On examination, blood pressure 111/68, pulse 99, temperature 97.4, he is 94% on 2 L nasal cannula. General description is an elderly female lying in the bed in no distress. Respiratory system: Unlabored breathing with occasional wheeze. Heart: S1 , S2 regular rate and rhythm. Abdomen soft, no tenderness. LABS: Hemoglobin 13.4, white count 12. BUN 37, creatinine 0.66. Blood culture with ( ). DIAGNOSTIC IMPRESSION AND PLAN: 1. Patient with positive blood cultures with ( ) which is likely a skin contamination in a patient with no clinical symptoms to go along with it. 2. Patient with possible bronchitis/atypical pneumonia. Antibiotic has been adjusted to azithromycin that will be continued in addition to the ( ) per pulmonary. Continue supportive care. MTDD
[2017-05-19] MEDS: DONEPEZIL 10 MG TAB PO SCH (21:35)
[2017-05-19] MEDS: MELATONIN 3 MG TABLET PO SCH (21:35)
[2017-05-19 22:04] LABS: Glucose,Whole Blood 92 mg/dL (75-99)
[2017-05-19] MEDS: guaiFENesin 600 MG TABLET.ER PO SCH (22:07)
[2017-05-19] MEDS: IPRATROPIUM 0.5 MG/2.5 ML NEBU INHALATION SCH (23:33)
[2017-05-19] MEDS: ALBUTEROL NEB (CONC) 2.5 MG/0.5 ML INHALATION SCH (23:33)
[2017-05-20] MEDS: ALBUTEROL NEB (CONC) 2.5 MG/0.5 ML INHALATION SCH ×8 (04:58→20:46)
[2017-05-20] MEDS: IPRATROPIUM 0.5 MG/2.5 ML NEBU INHALATION SCH ×7 (04:58→20:45)
[2017-05-20] MEDS: IPRATROPIUM-ALBUTEROL 3 ML NEB INHALATION PRN (05:47)
[2017-05-20 05:48] LABS: Glucose,Whole Blood 95 mg/dL (75-99)
[2017-05-20] MEDS ORDERED: FUROSEMIDE 40 MG TAB PO ONE (06:00)
[2017-05-20] MEDS: BUDESONIDE 1 MG/2 ML NEBU INHALATION SCH ×3 (07:36→20:47)
[2017-05-20] MEDS: FORMOTEROL FUMARATE 20 MCG/2 ML NEBU INHALATION SCH ×3 (07:38→20:47)
[2017-05-20 07:55] LABS: Glucose,Whole Blood 90 mg/dL (75-99)
[2017-05-20 08:16] LABS: Basophils # (A) 0.1 k/uL (0-0.2); Basophils % (A) 1 %; CH 34.9; CHCM 32.1; Eosinophils # (A) 0.3 k/uL (0-0.7); Eosinophils % (A) 3 %; HCT 41.5 % (34.0-46.0); HDW 2.54; HGB 13.7 gm/dL (11.4-16.0); Luc # (Auto) 0.17; Luc % (Auto) 2; Lymphocytes # (A) 2.1 k/uL (1.0-4.8); Lymphocytes % (A) 21 %; MCH 35.9 pg (25.0-35.0); MCV 108.9 fL (80.0-100.0); Macrocytosis Marked; Mean Platelet Volume 9.4; Monocytes # (A) 0.6 k/uL (0-1.0); Monocytes % (A) 6 %; Neutrophils # (A) 6.8 k/uL (1.3-7.7); Neutrophils % (A) 68 %; RBC 3.81 m/uL (3.80-5.40); RDW 15.1 % (11.5-15.5); WBC (Perox) 10.57
[2017-05-20 08:21] LABS: Anion Gap 9 mmol/L; Blood Urea Nitrogen 42 mg/dL (7-17); Calcium 9.9 mg/dL (8.4-10.2); Carbon Dioxide 29 mmol/L (22-30); Chloride 101 mmol/L (98-107); Glucose 87 mg/dL (74-99); Non-African American GFR(MDRD) 56 (>60 ml/min/1.73 sqM); Potassium 4.4 mmol/L (3.5-5.1); Sodium 139 mmol/L (137-145)
[2017-05-20] MEDS: INSULIN LISPRO (humaLOG) 300 UNIT/3 ML VIAL SQ SCH ×4 (08:31→21:48)
[2017-05-20] MEDS: ALPRAZolam 0.25 MG TAB PO SCH ×2 (08:32→20:57)
[2017-05-20] MEDS: LISINOPRIL 20 MG TAB PO SCH (08:32)
[2017-05-20] MEDS: ENOXAPARIN 40 MG/0.4 ML SYRINGE SQ SCH (08:32)
[2017-05-20] MEDS: AZITHROMYCIN 500 MG TAB PO SCH (08:32)
[2017-05-20] MEDS: predniSONE 10 MG TAB PO SCH (08:32)
[2017-05-20] MEDS: guaiFENesin 600 MG TABLET.ER PO SCH ×2 (08:32→20:57)
[2017-05-20] MEDS: CHOLECALCIFEROL 1,000 UNIT TAB PO SCH (08:33)
[2017-05-20] MEDS: PANTOPRAZOLE 40 MG TABLET PO SCH (08:33)
[2017-05-20] MEDS: LEVOTHYROXINE 137 MCG TAB PO SCH (08:33)
[2017-05-20] MEDS: CYANOCOBALAMIN 500 MCG TAB PO SCH (08:33)
[2017-05-20] MEDS: HYDROCHLOROTHIAZIDE 12.5 MG CAP PO SCH (08:33)
[2017-05-20] MEDS: guaiFENesin SYRUP 100MG/5ML 200 MG/10 ML CUP PO PRN ×2 (08:42→14:50)
--- NOTE | 2017-05-20 10:48 | PN ---
DATE OF SERVICE: 05/19/2017 Presented with wheezing and cough. HISTORY OF PRESENTING COMPLAINT: This lady admitted with COPD exacerbation and pneumonitis is still congested, coughing, wheezing. Did tolerate some diet. Baseline confused at time. REVIEW OF SYSTEMS: CONSTITUTIONAL: None. CARDIOVASCULAR: None. GI: None. PULMONARY: Findings as above. Current medications are reviewed that include nebulized bronchodilators, Zithromax, IV fluids. On examination, temperature 97.4, pulse 108, respirations 20, blood pressure 111 /68, pulse ox 94% on 2 liters. GENERAL APPEARANCE: Laying in bed, short of breath at rest. EYES: Pupils equal. Conjunctivae normal. NECK: JVP not raised. Mass not palpable. RESPIRATORY EFFORT: Increased. LUNGS: Decreased breath sounds. Prolonged expiration, wheezing. CARDIOVASCULAR: First and second sound normal. No edema. ABDOMEN: Soft, nontender. Liver and spleen not palpable. PSYCHIATRY: Awake, answering some simple questions. INVESTIGATIONS: White count 12, potassium 4.3. Chest x-ray reviewed by me shows bilateral basilar infiltrates. ASSESSMENT: 1. Acute chronic obstructive pulmonary disease exacerbation in ex-smoker who failed outpatient treatment, worsening. 2. Acute pneumonitis, could be viral, slow to respond. 3. Chronic congestive heart failure, ejection fraction not known. 4. Essential hypertension. 5. Hyperlipidemia. 6. Primary osteoarthritis of multiple joints. 7. Chronic scoliosis. 8. Chronic hypothyroidism. 9. Chronic anxiety, not otherwise specified. 10. Alzheimer's dementia, late onset type. 11. Gait dysfunction, uses a walker. PLAN: Will add Mucinex 200 mg twice a day. Will increase patient's nebulized bronchodilators to albuterol 5 mg every four hours and Atrovent every four hours. Will also order a 2D echocardiogram, d/c the IV fluids and give one dose of Lasix 20 mg. MTDD
[2017-05-20 12:28] LABS: Glucose,Whole Blood 114 mg/dL (75-99)
--- NOTE | 2017-05-20 12:39 | ECHOF ---
Referral Reason:assess LV function MEASUREMENTS -------- HEIGHT: 157.5 cm WEIGHT: 71.2 kg BP: 142/78 RVIDd: 2.2 cm (< 3.3) IVSd: 1.5 cm (0.6 - 1.1) LVIDd: 3.5 cm (3.9 - 5.3) LVPWd: 1.5 cm (0.6 - 1.1) IVSs: 2.1 cm LVIDs: 2.1 cm LVPWs: 2.1 cm Ao Diam: 2.6 cm (2.0 - 3.7) AV Cusp: 1.5 cm (1.5 - 2.6) MV EXCURSION: 9.718 mm (> 18.000) MV EF SLOPE: 44 mm/s (70 - 150) EPSS: 0.9 cm MV E Shawn: 0.73 m/s MV DecT: 301 ms MV A Shawn: 1.13 m/s MV E/A Ratio: 0.64 AR PHT: 806 ms RAP: 5.00 mmHg RVSP: 37.27 mmHg FINDINGS -------- Sinus rhythm. This was a technically difficult study with suboptimal views. Pt. is combative Pt. not compliant. There is moderate concentric left ventricular hypertrophy. Overall left ventricular systolic function is normal with, an EF between 55 - 60 %. The right ventricle is normal in size and function. The left atrium is normal in size. The right atrium was not well visualized. Aortic valve is trileaflet and is mildly thickened. There is mild aortic regurgitation. There is no evidence of aortic stenosis. The mitral valve leaflets are mildly thickened. There is trace to mild mitral regurgitation. Trace tricuspid regurgitation present. There is no evidence of pulmonary hypertension. The right ventricular systolic pressure, as measured by Doppler, is 37.27mmHg. The pulmonic valve was not well visualized. The aortic root size is normal. IVC Not well visulized. The pericardium is normal. There is no pericardial effusion. CONCLUSIONS -------- 1. Sinus rhythm. 2. There is mild aortic regurgitation. 3. The mitral valve leaflets are mildly thickened. 4. There is trace to mild mitral regurgitation. 5. Trace tricuspid regurgitation present. 6. There is no evidence of pulmonary hypertension. 7. The right ventricular systolic pressure, as measured by Doppler, is 37.27mmHg. 8. The pulmonic valve was not well visualized. 9. The aortic root size is normal. 10. IVC Not well visulized. 11. There is no pericardial effusion. 12. This was a technically difficult study with suboptimal views. 13. Pt. is combative, test stopped after apicals. 14. Pt. not compliant. 15. There is moderate concentric left ventricular hypertrophy. 16. Overall left ventricular systolic function is normal with, an EF between 55 - 60 %. 17. The left atrium is normal in size. 18. The right atrium was not well visualized. 19. Aortic valve is trileaflet and is mildly thickened. PRESSED OR BLOWN GLASS WORKER: Shekhar Easton RDCS
[2017-05-20] MEDS: MULTIVITAMINS, THERA 1 EACH TAB PO SCH (13:12)
[2017-05-20] MEDS: FOLIC ACID 1 MG TAB PO SCH (13:12)
[2017-05-20 17:41] LABS: Glucose,Whole Blood 127 mg/dL (75-99)
--- NOTE | 2017-05-20 19:59 | PN ---
This is a 87 -year-old female with history of chronic obstructive pulmonary disease exacerbation complicated by purulent tracheobronchitis. She also has some mild fluid overload with CHF, history of COPD, hypoxemic respiratory failure, hyperlipidemia, hypertension, DJD, hypothyroidism, history of cataracts , history of generalized anxiety disorder, dementia, and hard of hearing. The patient is doing much better from the pulmonary standpoint. Seems much more comfortable. She does not really give much history. Very recalcitrant. Current vital signs include temperature 97.2. Heart rate 88, respiratory rate 18. Blood pressure 125/64. Mean 84. Room air saturation 96%. Appears in no acute distress. Sleeping. HEENT examination is grossly unremarkable. Mucous membranes moist. Neck is supple. Cardiovascular examination reveals regular rhythm and rate. Lungs reveal a few scattered mild wheezes. No rhonchi. No crackles. Breath sounds are improved. Abdomen is soft. Extremities are intact. Labs are reviewed. White count 10. Hemoglobin 13.7. Hematocrit 41.5. Platelet count 318,000. Sodium and potassium chloride, CO2 all normal. BUN and creatinine were 42 and 0.94 suggesting prerenal azotemia. The rest of her labs look okay. Microbiology is showing some diphtheroids in her blood. Probably skin contaminant. Medications are reviewed. ASSESSMENT: 1. Chronic obstructive pulmonary disease exacerbation, complicated by purulent tracheobronchitis. 2. Mild fluid overload/congestive heart failure. 3. Hypoxemic respiratory failure. 4. Hyperlipidemia. 5. Hypertension. 6. Degenerative joint disease. 7. Hypothyroidism. 8. History of cataracts. 9. History of generalized anxiety and dementia. 10. Hearing loss. PLAN: The patients medications are reviewed. The patient is on appropriate medications. The patient could be discharged from the pulmonary standpoint. We switched the patient to Prednisone yesterday. If she is awake and alert, she can use the Symbicort two puffs twice a day. If she cannot use the Symbicort, she can be discharged on the Pulmicort and Perforomist or Formoterol. She was switched to Prednisone 30 mg a day. She is on oral antibiotics in the form of Zithromax. No additional recommendations are made. MTDD
--- NOTE | 2017-05-20 20:00 | P.PN ---
<Eva Mclaughlin Soumya - Last Filed: 05/20/17 19:35> Progress Note - Text DATE OF SERVICE: 05/20/2017 PRESENTING COMPLAINT: Shortness of breath INTERVAL HISTORY: 87-year-old patient followed by visiting physicians, resident of [facility]. Recently completed a course of antibiotics for pneumonia brought in because of bouts of coughing and shortness of breath. Difficult to obtain history information as patient has dementia 05/17/2017: Patient just walking back from the bathroom very short of breath, is difficult to direct her times. She admits she gets tired easily. 05/18/2017: Patient lying in the bed, sleeping quietly vital signs stable, audible wheezing heard, coarse cough, no sputum production, eating about 50% of her meals, overnight patient becomes fairly agitated and needs a sitter at the bedside, as she is a fall risk and has a tendency to be impulsive. Oral antibiotics and corticosteroids added to patient's medication regimen 05/19/2017: Lying in bed still congestive coughing wheezing, tolerate some of her diet confused baseline. 05/20/2017: Patient lying in bed, resting quietly, a bit lethargic today, arousable. Tolerate some of her diet, gets up with assistance, last BM was yesterday patient received increased albuterol treatments as well as a dose of Lasix by mouth and IV fluids were discontinued. 2-D echo was completed. REVIEW OF SYSTEMS: Unable to perform due to patient's dementia CURRENT MEDICATIONS DuoNeb's, Pulmicort, Xanax, Aricept, Lovenox, Synthroid, Ativan, melatonin. Prednisone 30 mg by mouth daily PHYSICAL EXAM VITAL SIGNS: 97.2, pulse 92, respiratory rate 18, blood pressure 125/64, oxygen saturation 96 % on liters GENERAL APPEARANCE: Lying in the bed, short of breath at rest. EYES: Pupils equal. Conjunctiva normal. NECK: JVD not raised. Mass not palpable. RESPIRATORY: Respiratory effort increased. Decreased breath sounds bilaterally , prolonged expiration, wheezing. CARDIOVASCULAR: First and second sounds normal. No edema. ABDOMEN: Soft. Liver and spleen not palpable. No tenderness. No mass palpable. PSYCHIATRY: Alert and oriented x1-2. Mood and affect a bit lethargic INVESTIGATIONS: White blood cell count 10.0 hemoglobin 13.7, sodium 139, potassium 4.4, BUN 42, creatinine 0.94. Accu-Cheks noted Echocardiogram: Sinus rhythm mild aortic regurgitation trace to mild mitral regurgitation, trace tricuspid regurgitation, no pulmonary hypertension, EF between 55 and 60% ASSESSMENT: -Acute severe COPD exacerbation in an ex-smoker who just finished a course of antibiotics, slow to respond - acute pneumonitis likely viral slow to respond -Chronic congestive heart failure EF between 55 and 60% -Essential hypertension. -Hyperlipidemia -Primary osteoarthritis of multiple joints. -Chronic scoliosis. -Chronic hypothyroidism. -Chronic anxiety not otherwise specified. -Alzheimer's dementia late onset type. -Gait dysfunction uses a walker PLAN: Continue bronchodilators, and antibiotics breathing treatments adjusted. Defer discussion of plan of care with patient until family is present at the bedside. We will continue to follow closely. . CASH APPLICATIONS MANAGER statement: Patient was seen and examined by nurse practitioner Eva Mclaughlin and all elements of the case discussed with attending Dr. Urrutia <Amadou Urrutia - Last Filed: 05/20/17 20:21> Progress Note - Text Attending note. Date of service-05/20/2017 This patient was seen and examined by me . I reviewed the note of my nurse practitioner, Ms. Mclaughlin. Discussed with her, additional findings as below. Admitted with pneumonia and COPD exacerbation. Yesterday I added Mucinex and double the dose of albuterol and increase the frequency to every 4 hours. Nursing informed the patient slept better. On examination: Lungs-decreased breath sounds with decreased wheezing. Tired appearing Investigations: White count 10 Assessment and plan: Acute COPD exacerbation in an ex-smoker showing some response, acute pneumonitis likely viral Continue current medication treatment plan, will cut back on bronchodilators hopefully tomorrow. Prognosis guarded
[2017-05-20] MEDS: MELATONIN 3 MG TABLET PO SCH (20:57)
[2017-05-20] MEDS: DONEPEZIL 10 MG TAB PO SCH (20:57)
[2017-05-20 21:30] LABS: Glucose,Whole Blood 151 mg/dL (75-99)
[2017-05-21] MEDS: IPRATROPIUM 0.5 MG/2.5 ML NEBU INHALATION SCH ×4 (02:53→15:44)
[2017-05-21] MEDS: ALBUTEROL NEB (CONC) 2.5 MG/0.5 ML INHALATION SCH ×4 (02:53→15:43)
[2017-05-21 07:02] LABS: Glucose,Whole Blood 106 mg/dL (75-99)
[2017-05-21] MEDS: BUDESONIDE 1 MG/2 ML NEBU INHALATION SCH ×2 (08:06→21:00)
[2017-05-21] MEDS: FORMOTEROL FUMARATE 20 MCG/2 ML NEBU INHALATION SCH ×2 (08:12→21:00)
[2017-05-21] MEDS: INSULIN LISPRO (humaLOG) 300 UNIT/3 ML VIAL SQ SCH ×4 (09:57→21:30)
[2017-05-21 12:09] LABS: Glucose,Whole Blood 100 mg/dL (75-99)
[2017-05-21] MEDS: ALPRAZolam 0.25 MG TAB PO SCH ×2 (14:06→18:13)
[2017-05-21] MEDS: ENOXAPARIN 40 MG/0.4 ML SYRINGE SQ SCH (14:37)
[2017-05-21] MEDS: AZITHROMYCIN 500 MG TAB PO SCH (14:37)
[2017-05-21] MEDS: CYANOCOBALAMIN 500 MCG TAB PO SCH (14:37)
[2017-05-21] MEDS: PANTOPRAZOLE 40 MG TABLET PO SCH (14:38)
[2017-05-21] MEDS: FOLIC ACID 1 MG TAB PO SCH (14:38)
[2017-05-21] MEDS: LISINOPRIL 20 MG TAB PO SCH (14:38)
[2017-05-21] MEDS: MULTIVITAMINS, THERA 1 EACH TAB PO SCH (14:38)
[2017-05-21] MEDS: guaiFENesin 600 MG TABLET.ER PO SCH ×2 (14:38→20:16)
[2017-05-21] MEDS: HYDROCHLOROTHIAZIDE 12.5 MG CAP PO SCH (14:39)
[2017-05-21] MEDS: predniSONE 10 MG TAB PO SCH (14:39)
[2017-05-21] MEDS: LEVOTHYROXINE 137 MCG TAB PO SCH (14:39)
[2017-05-21] MEDS: CHOLECALCIFEROL 1,000 UNIT TAB PO SCH (14:39)
--- NOTE | 2017-05-21 16:24 | PN ---
DATE OF SERVICE: 05/20/2017 REASON FOR FOLLOW UP: 1, Positive blood culture results. 2. Patient with possible tracheobronchitis or pneumonia. INTERVAL HISTORY: The patient is afebrile. The patient did have a dry, hacky cough. Not responding to the medicine the patient has been getting. The RN specifically mentioned that she did not note the patient to have any choking or coughing episodes while being fed, however, patient allowing them to get a breathing treatment. On examination, blood pressure is 88/54 with a pulse of 112, temperature 98, she is 97% on 2 liters nasal cannula. GENERAL DESCRIPTION: Elderly female up in the bed in no distress. RESPIRATORY: Unlabored breathing with bilateral wheeze. HEART: S1/S2 regular. ABDOMEN: Soft. No tenderness. LABS: Hemoglobin 13.7, white count 10 with a BUN 42, creatinine 0.94. DIAGNOSTIC IMPRESSION: 1. Patient with a positive blood culture, likely a combination. Monitor for symptoms. 2. Patient with possible tracheobronchitis/pneumonia. Patient currently on Zithromax. Patient needs to be watched closely to be sure no evidence of aspiration episodes, if any recurrent. If the cough persists x-rays will be repeated and antibiotics will be adjusted further. MTDD
[2017-05-21 17:26] LABS: Glucose,Whole Blood 148 mg/dL (75-99)
--- NOTE | 2017-05-21 18:32 | P.PN ---
<Eva Mclaughlin Soumya - Last Filed: 05/21/17 18:19> Progress Note - Text DATE OF SERVICE: 05/21/2017 PRESENTING COMPLAINT: Shortness of breath INTERVAL HISTORY: 87-year-old patient followed by visiting physicians, resident of [facility]. Recently completed a course of antibiotics for pneumonia brought in because of bouts of coughing and shortness of breath. Difficult to obtain history information as patient has dementia 05/17/2017: Patient just walking back from the bathroom very short of breath, is difficult to direct her times. She admits she gets tired easily. 05/18/2017: Patient lying in the bed, sleeping quietly vital signs stable, audible wheezing heard, coarse cough, no sputum production, eating about 50% of her meals, overnight patient becomes fairly agitated and needs a sitter at the bedside, as she is a fall risk and has a tendency to be impulsive. Oral antibiotics and corticosteroids added to patient's medication regimen 05/19/2017: Lying in bed still congestive coughing wheezing, tolerate some of her diet confused baseline. 05/20/2017: Patient lying in bed, resting quietly, a bit lethargic today, arousable. Tolerate some of her diet, gets up with assistance, last BM was yesterday patient received increased albuterol treatments as well as a dose of Lasix by mouth and IV fluids were discontinued. 2-D echo was completed. 05/21/2017: Sitting up in bed remains a more awake alert today. Tolerates her diet, last BM yesterday. No sputum production noted. Short of breath on exertion, requires assistance to and from the bathroom as gait is unsteady. REVIEW OF SYSTEMS: Unable to perform due to patient's dementia CURRENT MEDICATIONS DuoNeb's, Pulmicort, Xanax, Aricept, Lovenox, Synthroid, Ativan, melatonin. Prednisone 30 mg by mouth daily PHYSICAL EXAM VITAL SIGNS: Temperature 98.0, pulse 70, respiratory rate 20, blood pressure 122/62, oxygen saturation 97% on 3 L. GENERAL APPEARANCE: Sitting up in the bed, short of breath at rest. EYES: Pupils equal. Conjunctiva normal. NECK: JVD not raised. Mass not palpable. RESPIRATORY: Respiratory effort increased. Decreased breath sounds bilaterally , prolonged expiration, wheezing. CARDIOVASCULAR: First and second sounds normal. No edema. ABDOMEN: Soft. Liver and spleen not palpable. No tenderness. No mass palpable. PSYCHIATRY: Alert and oriented x1-2. Mood and affect a bit lethargic INVESTIGATIONS: Accu-Cheks noted ASSESSMENT: -Acute severe COPD exacerbation in an ex-smoker showing some response - acute pneumonitis likely viral. -Chronic congestive heart failure EF between 55 and 60% -Essential hypertension. -Hyperlipidemia -Primary osteoarthritis of multiple joints. -Chronic scoliosis. -Chronic hypothyroidism. -Chronic anxiety not otherwise specified. -Alzheimer's dementia late onset type. -Gait dysfunction uses a walker PLAN: Continue bronchodilators, and antibiotics breathing treatments adjusted. Defer discussion of plan of care with patient until family is present at the bedside. We will continue to follow closely. . CUSTOMS COMPLIANCE ANALYST statement: Patient was seen and examined by nurse practitioner Eva Mclaughlin and all elements of the case discussed with attending Dr. Urrutia <Amadou Urrutia - Last Filed: 05/21/17 19:07> Progress Note - Text Attending note. Date of service-05/21/2017 This patient was seen and examined by me . I reviewed the note of my nurse practitioner, Ms. Mclaughlin. Discussed with her, additional findings as below. Patient is feeling better. Sitting on the bed. Eating much better. Less respiratory symptoms. The cough is still present. Short of breath much improved On examination: Lungs-decreased breath sounds, wheezing much improved. Patient sitting up, indicating better. Eating her meal. Investigations: Accu-Cheks noted Assessment and plan: Acute severe COPD exacerbation in ex-smoker from acute pneumonitis clinically improving. We will cut back on the bronchodilators to every 6 hours
[2017-05-21] MEDS: DONEPEZIL 10 MG TAB PO SCH (20:16)
[2017-05-21] MEDS: MELATONIN 3 MG TABLET PO SCH (20:17)
[2017-05-21] MEDS: IPRATROPIUM-ALBUTEROL 3 ML NEB INHALATION SCH (21:00)
[2017-05-21 21:08] LABS: Glucose,Whole Blood 136 mg/dL (75-99)
[2017-05-22 07:45] LABS: Glucose,Whole Blood 96 mg/dL (75-99)
--- NOTE | 2017-05-22 08:16 | XR ---
EXAMINATION TYPE: XR chest 2V DATE OF EXAM: 05/22/2017 COMPARISON: NONE HISTORY: Cough and pneumonia. TECHNIQUE: Frontal and lateral views of the chest are obtained. FINDINGS: Similar to the prior examination there is peribronchial cuffing, worsened in the interim a nd most exaggerated within the left lower lobe in the retrocardiac airspace. Again there is diffuse i nterstitial prominence. Low lung volumes are again appreciated. Cardiomediastinal silhouette is withi n normal limits. Osseous structures are intact with degenerative changes at the acromioclavicular jennifer nts and thoracic spine. The known hiatal hernia is poorly visualized. IMPRESSION: Slight interval worsening of peribronchial cuffing and diffuse interstitial prominence. Findings may again relate to atypical pneumonia, bronchitis, or inflammatory etiology.
[2017-05-22] MEDS: INSULIN LISPRO (humaLOG) 300 UNIT/3 ML VIAL SQ SCH ×4 (08:43→21:30)
[2017-05-22] MEDS: ENOXAPARIN 40 MG/0.4 ML SYRINGE SQ SCH (08:45)
[2017-05-22] MEDS: HYDROCHLOROTHIAZIDE 12.5 MG CAP PO SCH (08:45)
[2017-05-22] MEDS: CHOLECALCIFEROL 1,000 UNIT TAB PO SCH (08:45)
[2017-05-22] MEDS: LEVOTHYROXINE 137 MCG TAB PO SCH (08:45)
[2017-05-22] MEDS: CYANOCOBALAMIN 500 MCG TAB PO SCH (08:45)
[2017-05-22] MEDS: guaiFENesin 600 MG TABLET.ER PO SCH ×2 (08:45→20:00)
[2017-05-22] MEDS: LEVOFLOXACIN 500 MG TAB PO SCH (08:46)
[2017-05-22] MEDS: predniSONE 10 MG TAB PO SCH (08:46)
[2017-05-22] MEDS: ALPRAZolam 0.25 MG TAB PO SCH ×2 (08:47→17:36)
[2017-05-22] MEDS: BUDESONIDE 1 MG/2 ML NEBU INHALATION SCH ×2 (09:00→19:06)
[2017-05-22] MEDS: IPRATROPIUM-ALBUTEROL 3 ML NEB INHALATION SCH ×4 (09:00→19:06)
[2017-05-22] MEDS: FORMOTEROL FUMARATE 20 MCG/2 ML NEBU INHALATION SCH ×3 (09:00→19:06)
[2017-05-22] MEDS: LISINOPRIL 20 MG TAB PO SCH (09:25)
[2017-05-22] MEDS: PANTOPRAZOLE 40 MG TABLET PO SCH (09:25)
[2017-05-22 12:01] LABS: Glucose,Whole Blood 119 mg/dL (75-99)
[2017-05-22] MEDS: FOLIC ACID 1 MG TAB PO SCH (13:04)
[2017-05-22] MEDS: MULTIVITAMINS, THERA 1 EACH TAB PO SCH (13:04)
[2017-05-22 17:15] LABS: Glucose,Whole Blood 118 mg/dL (75-99)
--- NOTE | 2017-05-22 18:47 | PN ---
DATE OF SERVICE: 05/21/17 REASON FOR FOLLOW UP: 1. Positive blood culture secondary contamination. 2. Possible bronchitis/pneumonia. INTERVAL HISTORY: The patient is afebrile. He is breathing more comfortably. She did have overall cough has improved. No nausea or vomiting. No abdominal pain or any diarrhea. On examination, blood pressure 122/52, pulse 76, temperature 98. She is 97% on 3 L nasal cannula. General description is an elderly female lying in the bed in no distress. Respiratory system: Unlabored breathing. Decreased breath sounds at the base. No wheeze. Heart: S1, S2 regular rate and rhythm. Abdomen soft, no tenderness. LABS: Hemoglobin 13.7, white count 10. BUN 14, creatinine 0.94. DIAGNOSTIC IMPRESSION AND PLAN: 1. Patient with possible ( ) likely a contamination. Follow-up blood cultures negative. 2. Patient with possible bronchitis/ pneumonia. Antibiotic can be adjusted to Levaquin 500 daily for another week to finish course of therapy. Continue supportive care. MTDD
[2017-05-22] MEDS: DONEPEZIL 10 MG TAB PO SCH (20:00)
[2017-05-22] MEDS: MELATONIN 3 MG TABLET PO SCH (20:00)
[2017-05-22 21:32] LABS: Glucose,Whole Blood 114 mg/dL (75-99)
--- NOTE | 2017-05-23 06:57 | PN ---
DATE OF SERVICE: 05/22/2017 Reason for follow up is:: 1. Positive blood culture 2. Possible bronchitis/pneumonia. INTERVAL HISTORY: The patient is afebrile, has been breathing comfortably. Denies significant chest pain or cough, no abdominal pain or diarrhea. On examination, blood pressure 100/52 with a pulse of 88, temperature 96.4. She is 92% on 2 L nasal cannula. General description is an elderly female, lying in bed in no distress. RESPIRATORY SYSTEM: Unlabored breathing, clear to auscultation anteriorly. HEART: S1, S2, regular rate and rhythm. ABDOMEN: Soft, no tenderness. DIAGNOSTIC IMPRESSION AND PLAN: 1. Patient with positive blood culture which is likely a skin contamination. No need for any therapy for the same. 2. Patient with possible atypical pneumonia, apparently on p.o. Levaquin for about a week to finish the course of therapy. Continue support care. REBECCA
[2017-05-23 07:42] LABS: Glucose,Whole Blood 83 mg/dL (75-99)
[2017-05-23] MEDS: FORMOTEROL FUMARATE 20 MCG/2 ML NEBU INHALATION SCH ×2 (07:51→07:56)
[2017-05-23] MEDS: BUDESONIDE 1 MG/2 ML NEBU INHALATION SCH (07:51)
[2017-05-23] MEDS: IPRATROPIUM-ALBUTEROL 3 ML NEB INHALATION SCH ×3 (07:51→15:41)
[2017-05-23 08:00] VITALS: RESP 16
[2017-05-23] MEDS: PANTOPRAZOLE 40 MG TABLET PO SCH (08:26)
[2017-05-23] MEDS: LEVOFLOXACIN 500 MG TAB PO SCH (08:26)
[2017-05-23] MEDS: CYANOCOBALAMIN 500 MCG TAB PO SCH (08:26)
[2017-05-23] MEDS: LISINOPRIL 20 MG TAB PO SCH (08:26)
[2017-05-23] MEDS: predniSONE 10 MG TAB PO SCH (08:26)
[2017-05-23] MEDS: LEVOTHYROXINE 137 MCG TAB PO SCH (08:26)
[2017-05-23] MEDS: guaiFENesin 600 MG TABLET.ER PO SCH (08:26)
[2017-05-23] MEDS: INSULIN LISPRO (humaLOG) 300 UNIT/3 ML VIAL SQ SCH ×2 (08:27→13:25)
[2017-05-23] MEDS: HYDROCHLOROTHIAZIDE 12.5 MG CAP PO SCH (08:27)
[2017-05-23] MEDS: ALPRAZolam 0.25 MG TAB PO SCH (08:27)
[2017-05-23] MEDS: CHOLECALCIFEROL 1,000 UNIT TAB PO SCH (08:27)
[2017-05-23] MEDS: ENOXAPARIN 40 MG/0.4 ML SYRINGE SQ SCH (08:28)
[2017-05-23 08:49] LABS: Basophils # (A) 0.1 k/uL (0-0.2); Basophils % (A) 1 %; CH 34.9; CHCM 32.6; Eosinophils # (A) 0.3 k/uL (0-0.7); Eosinophils % (A) 3 %; HCT 41.9 % (34.0-46.0); HDW 2.52; HGB 13.8 gm/dL (11.4-16.0); Luc # (Auto) 0.28; Luc % (Auto) 3; Lymphocytes # (A) 2.2 k/uL (1.0-4.8); Lymphocytes % (A) 23 %; MCH 35.3 pg (25.0-35.0); MCHC 32.9 g/dL (31.0-37.0); MCV 107.4 fL (80.0-100.0); Macrocytosis Moderate; Mean Platelet Volume 9.7; Monocytes # (A) 0.6 k/uL (0-1.0); Monocytes % (A) 7 %; Neutrophils # (A) 6.1 k/uL (1.3-7.7); Neutrophils % (A) 64 %; RDW 14.7 % (11.5-15.5); WBC 9.5 k/uL (3.8-10.6); WBC (Perox) 10.13
[2017-05-23 09:01] LABS: Anion Gap 9 mmol/L; Blood Urea Nitrogen 49 mg/dL (7-17); Calcium 9.8 mg/dL (8.4-10.2); Carbon Dioxide 28 mmol/L (22-30); Chloride 104 mmol/L (98-107); Glucose 77 mg/dL (74-99); Non-African American GFR(MDRD) >60 (>60 ml/min/1.73 sqM); Sodium 141 mmol/L (137-145)
[2017-05-23 09:09] LABS: Potassium 4.4 mmol/L (3.5-5.1)
[2017-05-23 12:06] LABS: Glucose,Whole Blood 103 mg/dL (75-99)
--- NOTE | 2017-05-23 13:07 | CDI ---
In responding to this query, please exercise your independent professional judgment. The [facility] Coding Staff and Clinical Documentation Specialists appreciate your assistance in clarifying documentation, maintaining compliance with coding guidelines, accurately documenting patients condition and capturing severity of illness. The fact that a question is asked does not imply that any particular answer is desired or expected. Communication forms are a method of clarifying documentation and are not made part of the Legal Health Record. Thank you in advance for your clarification. Last Revision, December 2016 Jesus Deluca [address] [facility] [place] [address] Documentation Clarification Form Date: 05/23/2017 12:44:00 PM From: Maryana Garcia RN, CCDS Admit Date: 05/16/2017 1:13:00 PM Patient Name: Jaylin Mosley Visit Number: [id number] Discharge Date: Dr. Amadou Urrutia Chronic congestive heart failure EF between 55 and 60 % is documented in your progress notes. History/Risk Factors: CHF, COPD, Hypertension, Dementia, Hypothyroid Clinical Indicators: Present with complaints of shortness of breath sat's per EMS high 80's. She had occasional coughing, diffuse expiratory wheezing, respiration labored. VS/Pulse OX: 124/72 96 26 99.8 91 % 2/L NC BNP: 86 Echocardiogram Results: EF 55-60 % Chest X Ray: Prominence of the interstitium and per bronchial cuffing. Consideration is for atypical pneumonia, bronchitis, or inflammatory etiology. Treatment: Lasix IVP, change to PO (DC 05/20/17) 05/19/17 Pulmonary: congestive heart failure, mild fluid overload. In your professional opinion, can you please clarify the acuity and type of CHF if known? Systolic Heart Failure: Acute Chronic Acute on Chronic Diastolic Heart Failure: Acute Chronic Acute on Chronic Systolic & Diastolic Heart Failure: Acute Chronic Acute on Chronic Unable to determine Other, please specify Please document in your progress notes and discharge summary in order to capture severity of illness and risk of mortality. Include clinical findings that support your diagnosis. FYI: Press F11 to launch patient chart. REBECCA
[2017-05-23] MEDS: MULTIVITAMINS, THERA 1 EACH TAB PO SCH (13:28)
[2017-05-23] MEDS: FOLIC ACID 1 MG TAB PO SCH (13:28)
[2017-05-23 15:11] VITALS: BMI 28.4
--- NOTE | 2017-05-23 15:27 | P.DS ---
Providers Date of admission: 05/16/17 13:13 Expected date of discharge: 05/23/17 Attending physician: Amadou Urrutia Consults: 05/17/17 11:44 Consult Physician Routine Consulting Provider: Eder John Consult Reason/Comments: pneumonitis Do you want consulting provider notified?: Yes 05/18/17 09:23 Consult Physician Routine Consulting Provider: Clif Vann Consult Reason/Comments: + blood culture Do you want consulting provider notified?: Yes Primary care physician: Stated None Hospital Course: Final diagnoses: -Acute severe COPD exacerbation in an ex-smoker clinically improving - acute pneumonitis likely viral. -Chronic congestive heart failure EF between 55 and 60% from diastolic dysfunction, secondary to hypertensive heart disease -Essential hypertension. -Hyperlipidemia -Primary osteoarthritis of multiple joints. -Chronic scoliosis. -Chronic hypothyroidism. -Chronic anxiety not otherwise specified. -Alzheimer's dementia late onset type. -Gait dysfunction uses a walker Hospital course: This is a patient admitted with severe COPD exacerbation and pneumonia. Patient is somewhat delirious than improved. Eating better the time of discharge. Minimal cough. Patient at times get confused because of dementia. Patient is able to carry on simple conversation. Consultation: Dr. John from pulmonary Dr. Vann of infection disease Physical examination: Lungs decreased breath sounds, cardiovascular first seconds are normal, psych patient is able to answer simple questions. Disposition: F/[facility] Code status: DO NOT RESUSCITATE Plan - Discharge Summary New Discharge Prescriptions: New Formoterol Fumarate [Perforomist] 20 mcg INHALATION RT-BID neb guaiFENesin SYRUP 100MG/5ML [Robitussin] 200 mg PO Q6H PRN dose PRN Reason: Cough Ipratropium-Albuterol Nebulize [Duoneb 0.5 mg-3 mg/3 ml Soln] 3 ml INHALATION RT-QID neb Ipratropium-Albuterol Nebulize [Duoneb 0.5 mg-3 mg/3 ml Soln] 3 ml INHALATION RT-Q4H PRN neb PRN Reason: Shortness Of Breath Or Wheezing predniSONE See Taper PO DAILY #10 tab Levofloxacin [Levaquin] 500 mg PO DAILY #5 tab Continue Hydrochlorothiazide [Hydrodiuril] 12.5 mg PO DAILY@0800 Donepezil [Aricept] 10 mg PO HS@2000 Zinc 50 mg PO DAILY@0800 Ascorbic Acid [Vitamin C] 500 mg PO DAILY@0800 Lisle-3 Fatty Acids/Fish Oil [Fish Oil 1,000 mg Softgel] 1 cap PO DAILY@0800 Lisinopril 40 mg PO DAILY@0800 Levothyroxine Sodium [Synthroid] 137 mcg PO DAILY@0800 Omeprazole [PriLOSEC] 20 mg PO DAILY@0800 Folic Acid 1 mg PO DAILY@1200 #30 tab Multivitamins, Thera [Multivitamin (formulary)] 1 tab PO DAILY@1200 Cholecalciferol [Vitamin D3] 2,000 unit PO DAILY@0800 Melatonin 3 mg PO HS@1999 Acetaminophen Tab [Tylenol] 500 mg PO HS@1999 Budesonide [Pulmicort] 1 mg INHALATION RT-BID nebu Cyanocobalamin (Vitamin B-12) [Vitamin B-12] 1,000 mcg PO DAILY@0800 ALPRAZolam [Xanax] 0.25 mg PO BID@0900,1700 #10 Discontinued Albuterol Nebulized [Ventolin Nebulized] 2.5 mg INHALATION RT-TID Albuterol Nebulized [Ventolin Nebulized] 2.5 mg INHALATION RT-Q4H PRN PRN Reason: SOB, Wheezing, Cough Discharge Medication List Ascorbic Acid [Vitamin C] 500 mg PO DAILY@0800 01/02/15 [History] Donepezil [Aricept] 10 mg PO HS@199901/02/15 [History] Hydrochlorothiazide [Hydrodiuril] 12.5 mg PO DAILY@0800 01/02/15 [History] Lisinopril 40 mg PO DAILY@0800 01/02/15 [History] Lisle-3 Fatty Acids/Fish Oil [Fish Oil 1,000 mg Softgel] 1 cap PO DAILY@0800 [History] Zinc 50 mg PO DAILY@0801/02/15 [History] Levothyroxine Sodium [Synthroid] 137 mcg PO DAILY@0800 01/13/15 [History] Omeprazole [PriLOSEC] 20 mg PO DAILY@0800 01/13/15 [History] Folic Acid 1 mg PO DAILY@1200 #30 tab 11/03/15 [Rx] Multivitamins, Thera [Multivitamin (formulary)] 1 tab PO DAILY@1200 02/28/16 [ History] Acetaminophen Tab [Tylenol] 500 mg PO HS@199905/29/16 [History] Cholecalciferol [Vitamin D3] 2,000 unit PO DAILY@79905/29/16 [History] Melatonin 3 mg PO HS@199905/29/16 [History] Budesonide [Pulmicort] 1 mg INHALATION RT-BID nebu 06/03/16 [Rx] Cyanocobalamin (Vitamin B-12) [Vitamin B-12] 1,000 mcg PO DAILY@0805/16/17 [ History] Formoterol Fumarate [Perforomist] 20 mcg INHALATION RT-BID neb 05/22/17 [Rx] Ipratropium-Albuterol Nebulize [Duoneb 0.5 mg-3 mg/3 ml Soln] 3 ml INHALATION RT -Q4H PRN neb 05/22/17 [Rx] Ipratropium-Albuterol Nebulize [Duoneb 0.5 mg-3 mg/3 ml Soln] 3 ml INHALATION RT -QID neb 05/22/17 [Rx] Levofloxacin [Levaquin] 500 mg PO DAILY #5 tab 05/22/17 [Rx] guaiFENesin SYRUP 100MG/5ML [Robitussin] 200 mg PO Q6H PRN dose 05/22/17 [Rx] predniSONE See Taper PO DAILY #10 tab 05/22/17 [Rx] ALPRAZolam [Xanax] 0.25 mg PO BID@0900,1700 #10 05/23/17 [Rx] Follow up Appointment(s)/Referral(s): Alexis Desir MD [STAFF PHYSICIAN] - 05/24/17 Eder John DO [Doctor of Osteopathic Medicine] - 2 Weeks Patient Instructions/Handouts: Heart Failure (DC) Activity/Diet/Wound Care/Special Instructions: DIET: Heart Healthy 2000 mg low sodium diet Discharge Disposition: TRANSFER TO SNF/F
[2017-05-23 15:35] VITALS: BP 101/64; PULSE 94; TEMP 97
--- NOTE | 2017-05-23 23:28 | PN ---
DATE OF SERVICE: 05/23/2017 REASON FOR FOLLOWUP: 1. Positive blood culture, skin contamination. 2. Possible bronchitis versus atypical pneumonia. INTERVAL HISTORY: The patient is afebrile. She is breathing more comfortably. Denies significant chest pain. Some shortness of breath. Occasional cough. No abdominal pain or any diarrhea. On examination, blood pressure 120/73 with a pulse of 79, temperature 98.1. She is 93% on room air. General description is an elderly female lying in bed in no distress. RESPIRATORY SYSTEM: Unlabored breathing with ( ) intensity of breath sounds. No wheeze. HEART: S1, S2. Regular rate and rhythm. ABDOMEN: Soft. No tenderness. LABS: Hemoglobin is 13.3, white count 9.5 with a BUN of 49, creatinine 0.76. DIAGNOSTIC IMPRESSION AND PLAN: 1. Patient with positive blood culture with diphtheroid species, likely skin contamination. No need for therapy for this. 2. Patient with possible bronchitis/atypical pneumonia, currently on oral Levaquin, which will continue for about 7 to 10 days to finish course of therapy. Continue supportive care. [facility]
[2017-05-24] MEDS ORDERED: LEVOFLOXACIN 250 MG TAB PO SCH (09:00)
--- NOTE | 2017-05-24 17:32 | CDI ---
In responding to this query, please exercise your independent professional judgment. The [facility] Coding Staff and Clinical Documentation Specialists appreciate your assistance in clarifying documentation, maintaining compliance with coding guidelines, accurately documenting patients condition and capturing severity of illness. The fact that a question is asked does not imply that any particular answer is desired or expected. Communication forms are a method of clarifying documentation and are not made part of the Legal Health Record. Thank you in advance for your clarification. Last Revision, December 2015 Jesus Deluca [address] [facility] [place] [address] Documentation Clarification Form Date: 05/24/2017 4:56:00 PM From: Maryana Garcia Admit Date: 05/16/2017 1:13:00 PM Patient Name: Jaylin Mosley Visit Number: [id number] Discharge Date: Dr. Eder John Consult and progress notes 05/18/17-05/20/17 has Hypoxemic respiratory failure History/Risk Factors: Diastolic Heart Failure, COPD, Hypertension Tobacco use: Former smoker Clinical Indicators: Present to ED with complaints of shortness of breath. Per EMS sat's were in the 80's. She has occasional coughing fits per log buncher. ED respiration was labored. Patient has diffuse expiratory wheezing, and cough. She has audible wheezing. Vital signs/Pulse ox: 124/72 96 26 91 % 2/L NC Labs: Lactic acid was 2.3 BNP 86 Chest x-ray: no acute abnormality, Treatment: Duoneb Inhalation per orders Pulmicort Robitussiin PRN, Monitor Sat's (titrate O2) In your professional opinion, can you please clarify if these findings signify one of the following conditions? Acute Hypoxemic Respiratory Failure Chronic Hypoxemic Respiratory Failure Acute on Chronic Hypoxemic Respiratory Failure Other (Specify) Unable to determine Please document as an addendum in your progress notes in order to capture severity of illness and risk of mortality. Include clinical findings that support your diagnosis. FYI: Press F11 to launch patient chart. MTDEdie
--- NOTE | 2017-05-24 20:01 | P.PN ---
<Eva Mclaughlin Soumya - Last Filed: 05/22/17 21:39> Progress Note - Text DATE OF SERVICE: 05/22/2017 PRESENTING COMPLAINT: Shortness of breath INTERVAL HISTORY: 87-year-old patient followed by visiting physicians, resident of [facility]. Recently completed a course of antibiotics for pneumonia brought in because of bouts of coughing and shortness of breath. Difficult to obtain history information as patient has dementia 05/17/2017: Patient just walking back from the bathroom very short of breath, is difficult to direct her times. She admits she gets tired easily. 05/18/2017: Patient lying in the bed, sleeping quietly vital signs stable, audible wheezing heard, coarse cough, no sputum production, eating about 50% of her meals, overnight patient becomes fairly agitated and needs a sitter at the bedside, as she is a fall risk and has a tendency to be impulsive. Oral antibiotics and corticosteroids added to patient's medication regimen 05/19/2017: Lying in bed still congestive coughing wheezing, tolerate some of her diet confused baseline. 05/20/2017: Patient lying in bed, resting quietly, a bit lethargic today, arousable. Tolerate some of her diet, gets up with assistance, last BM was yesterday patient received increased albuterol treatments as well as a dose of Lasix by mouth and IV fluids were discontinued. 2-D echo was completed. 05/21/2017: Sitting up in bed remains a more awake alert today. Tolerates her diet, last BM yesterday. No sputum production noted. Short of breath on exertion, requires assistance to and from the bathroom as gait is unsteady. 05/22/2017: Lying in bed appears comfortable. Tolerating her diet, last BM today. Strong cough, no sputum production. Short of breath on exertion, ambulating with assistance gait a bit unsteady. Family requesting the patient be sent for rehab for gait training and strengthening. REVIEW OF SYSTEMS: Unable to perform due to patient's dementia CURRENT MEDICATIONS DuoNeb's, Pulmicort, Xanax, Aricept, Lovenox, Synthroid, Ativan, melatonin. Prednisone 30 mg by mouth daily PHYSICAL EXAM VITAL SIGNS: Temperature 97.7, pulse 81, respiratory rate 16, blood pressure 98/67, oxygen saturation 93% on 3 L GENERAL APPEARANCE: Lying in the bed, breathing is easier than in days past EYES: Pupils equal. Conjunctiva normal. NECK: JVD not raised. Mass not palpable. RESPIRATORY: Respiratory effort increased. Decreased breath sounds bilaterally , coarse breath sounds, prolonged expiration, wheezing. CARDIOVASCULAR: First and second sounds normal. No edema. ABDOMEN: Soft. Liver and spleen not palpable. No tenderness. No mass palpable. PSYCHIATRY: Alert and oriented x1-2. Mood and affect a bit lethargic INVESTIGATIONS: None new Accu-Cheks noted ASSESSMENT: -Acute severe COPD exacerbation in an ex-smoker clinically improving - acute pneumonitis likely viral. -Chronic congestive heart failure EF between 55 and 60% -Essential hypertension. -Hyperlipidemia -Primary osteoarthritis of multiple joints. -Chronic scoliosis. -Chronic hypothyroidism. -Chronic anxiety not otherwise specified. -Alzheimer's dementia late onset type. -Gait dysfunction uses a walker PLAN: Continue bronchodilators, and antibiotics breathing treatments adjusted. Defer discussion of plan of care with patient until family is present at the bedside. We will continue to follow closely. tenative discharge planning for tomorrow. . INDEX EDITOR statement: Patient was seen and examined by nurse practitioner Eva Mclaughlin and all elements of the case discussed with attending Dr. Urrutia <Amadou Urrutia - Last Filed: 05/24/17 20:01> Progress Note - Text Attending note. Date of service-05/22/2017 This patient was seen and examined by me . I reviewed the note of my nurse practitioner, Ms. Mclaughlin. Discussed with her, additional findings as below. Patient bid with COPD exacerbation and pneumonitis. Improving better. Eating better did walk with some support. On examination: Lungs-improve entry. Decreased wheezing. Psych answering some simple questions Investigations: White count normal Assessment and plan: Acute severe COPD exacerbation improving, acute pneumonitis possibly viral load being covered with antibiotic antibiotics improving. Patient will need inpatient rehab possibly
== END 2017-05-23 16:34 | DRG 190 ==
LOC: EC 10:48 → 5ONC 13:13 → 4MS4W 13:44
PROVIDERS: ADMIT Hospitalist; ATTEND Hospitalist
DX: J44.0 Chronic obstructive pulmonary disease with (acute) lower respiratory infection (principal); J12.9 Viral pneumonia, unspecified; J96.91 Respiratory failure, unspecified with hypoxia; I50.32 Chronic diastolic (congestive) heart failure; I11.0 Hypertensive heart disease with heart failure; M41.9 Scoliosis, unspecified; J44.1 Chronic obstructive pulmonary disease with (acute) exacerbation; E86.0 Dehydration; G30.1 Alzheimer's disease with late onset; Z66 Do not resuscitate; F02.80 Dementia in other diseases classified elsewhere, unspecified severity, without behavioral disturbance, psychotic disturbance, mood disturbance, and anxiety; E78.5 Hyperlipidemia, unspecified; M19.91 Primary osteoarthritis, unspecified site; E03.9 Hypothyroidism, unspecified; R32 Unspecified urinary incontinence; F41.1 Generalized anxiety disorder; H91.90 Unspecified hearing loss, unspecified ear; R26.81 Unsteadiness on feet; Z79.51 Long term (current) use of inhaled steroids; Z79.899 Other long term (current) drug therapy; Z87.891 Personal history of nicotine dependence; Z98.42 Cataract extraction status, left eye; Z98.41 Cataract extraction status, right eye; Z86.19 Personal history of other infectious and parasitic diseases; Z90.710 Acquired absence of both cervix and uterus; Z88.1 Allergy status to other antibiotic agents; Z88.5 Allergy status to narcotic agent; Z88.8 Allergy status to other drugs, medicaments and biological substances; Z91.018 Allergy to other foods
CPT/HCPCS: 36415; 71020; 80048; 80053; 82550; 82553; 83036; 83605; 83880; 84484; 85025; 85610; 85730; 87040; 93005; 93306; 94640; 94760; 96374; 99285